=== PATIENT | female | born 1945 | race Caucasian/White ===

== ENCOUNTER 2017-08-29 15:30 | Inpatient (IN) | payer MEDICARE, OTHER ==
[2017-08-29] MEDS ORDERED: fentaNYL 100 MCG/2 ML SDV IVPUSH ONE (16:54)
--- NOTE | 2017-08-29 18:13 | EDM.PDOC ---
ED HPI GENERAL MEDICAL PROBLEM - General Chief Complaint: Back Pain or Injury Stated Complaint: BACK PAIN Time Seen by Provider: 08/29/17 16:10 Source of Information: Reports: Patient History Limitations: Reports: No Limitations - History of Present Illness INITIAL COMMENTS - FREE TEXT/NARRATIVE: Jo-Ann is a 72 yo female brought into the ER via EMS with complaints of low back pain radiating to bilateral hips. She states the pain initially started about 1 1/2 weeks ago when she was lifting something and heard a pop. She states she did go see a chiropractor twice and feels this made it worse. Has had some difficulties with being incontinent as well. However, still able to control bowel movements. She states the pain became worse today and is unable to get up. Over the last week she hasn't taken any of her medications either as she didn't want to get up. Duration: Getting Worse Location: Reports: Back Improves with: Reports: Immobilization Worsens with: Reports: Movement Associated Symptoms: Reports: No Other Symptoms Bilateral Lower Hip Pain Score (Numeric/FACES): 5 - Related Data Allergies Allergy/AdvReac Type Severity Reaction Status Date / Time ciprofloxacin [From Cipro] Allergy Cannot Verified 08/29/17 15:38 Remember ciprofloxacin HCl Allergy Cannot Verified 08/29/17 15:38 [From Cipro] Remember morphine Allergy Cannot Verified 08/29/17 15:38 Remember simvastatin [From Zocor] Allergy Cannot Verified 08/29/17 15:38 Remember Home Meds: Home Meds Acetaminophen/HYDROcodone [Lortab 500-5 MG] 1 tab PO Q8H PRN 03/03/14 [History] Ascorbate Calcium/Bioflavonoid [Ofelia-C 1,000 mg Tablet] 1 each PO DAILY [History] Aspirin [Ecotrin] 325 mg PO DAILY 03/03/14 [History] Ca Cmb No.1/Vit D3/B-6/FA/B12 [Vitamin D3 1,000 Unit] 1 each PO DAILY 03/03/14 [ History] Calc/D3/Mag/Zn/Freelance Designer/[place]/Anthon [Calcium 600 MG Plus Vit D] 1 each PO DAILY [History] Cyanocobalamin (Vitamin B12) [Vitamin B12] 1,000 mcg IJ ASDIRECTED 03/03/14 [ History] Esomeprazole [NexIUM] 40 mg PO DAILY 03/03/14 [History] Gabapentin [Gabapentin] 100 mg PO DAILY 03/03/14 [History] Meclizine [Antivert] 25 mg PO ASDIRECTED PRN 03/03/14 [History] Metoprolol Succinate [Toprol XL 50mg] 50 mg PO DAILY 03/03/14 [History] Naproxen Sodium [Aleve] 440 mg PO BID PRN 03/03/14 [History] Rosuvastatin Calcium [Crestor] 5 mg PO DAILY 03/03/14 [History] Sertraline [Zoloft] 50 mg PO BEDTIME 03/03/14 [History] Past Medical History HEENT 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: Cataract, Hard of Hearing, Impaired Vision Cardiovascular 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: High Cholesterol, Hypertension Gastrointestinal 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: GERD Genitourinary 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: Urinary Incontinence [employer]OR 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: Musculoskeletal 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: Arthritis, Back Pain, Chronic Neurological 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: Headaches, Chronic Psychiatric 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: Depression - Past Surgical History HEENT Surgical 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: Cataract Surgery Cardiovascular Surgical 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: Valve Replacement GI Surgical 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: Colonoscopy, EGD Social & Family History - Family History Family Medical History: Noncontributory - Tobacco Use Smoking Status *Q: Former Smoker Used Tobacco, but Quit: Yes Month Tobacco Last Used: 1959 - Caffeine Use Caffeine Use: Reports: Coffee, Soda - Recreational Drug Use Recreational Drug Use: No ED ROS GENERAL - Review of Systems Review Of Systems: See Below Constitutional: Reports: No Symptoms HEENT: Reports: No Symptoms Respiratory: Reports: No Symptoms Cardiovascular: Reports: No Symptoms GI/Abdominal: Denies: Abdominal Pain, Constipation, Diarrhea : Reports: Incontinence. Denies: Frequency, Urgency, Urinary Retention Musculoskeletal: Reports: Back Pain, Muscle Pain (across entire low back) Neurological: Reports: Difficulty Walking, Weakness ED EXAM,LOWER BACK PAIN/INJURY - Physical Exam Exam: See Below Exam Limited By: No Limitations General Appearance: Alert, Mild Distress Ears: Normal External Exam, Normal TMs, Hearing Loss Nose: Normal Inspection, Normal Mucosa, No Blood Throat/Mouth: Normal Inspection, Normal Lips, Normal Teeth, Normal Gums, Normal Oropharynx, Normal Voice, No Airway Compromise Head: Atraumatic, Normocephalic Neck: Normal Inspection, Supple Respiratory/Chest: No Respiratory Distress, Lungs Clear, Normal Breath Sounds Cardiovascular: Regular Rate, Rhythm, No Edema, No Murmur GI/Abdominal: Normal Bowel Sounds, Soft, Non-Tender, No Abnormal Bruit, No Mass Back Exam: Paraspinal Tenderness (L2-L4), Vertebral Tenderness (L2-L4) Extremities: Normal Inspection, Normal Range of Motion, Normal Capillary Refill Neurological: Alert, Normal Mood/Affect, No Motor/Sensory Deficits Psychiatric: Normal Affect, Normal Mood Skin Exam: Warm, Dry, Intact, Normal Color, No Rash, Cool Course - Vital Signs Last Recorded V/S: Last Vital Signs Temp 98.9 F 08/29/17 15:58 Pulse 62 08/29/17 15:58 Resp 16 08/29/17 15:58 BP 148/74 H 08/29/17 15:58 Pulse Ox 94 L 08/29/17 15:58 - Orders/Labs/Meds Orders: Active Orders 24 hr Category Date Time Status Lumbar Spine wo Cont [CT] Stat Exams 08/29/17 15:50 Taken Meds: Medications Discontinued Medications Generic Name Dose Route Start Last Admin Trade Name Kiko PRN Reason Stop Dose Admin Fentanyl 50 mcg 08/29/17 16:54 08/29/17 17:03 Sublimaze IVPUSH 08/29/17 16:55 50 mcg ONETIME ONE Administration Departure - Departure Time of Disposition: 18:00 Disposition: Admitted As Inpatient 65 Clinical Impression: Compression fracture of L3 lumbar vertebra - Discharge Information - Problem List & Annotations (1) Compression fracture of L3 lumbar vertebra SNOMED Code(s): 605978155 Code(s): S32.030A - WEDGE COMPRESSION FRACTURE OF THIRD LUMBAR VERTEBRA, INIT Status: Acute Current Visit: Yes Qualifiers: Encounter type: initial encounter Fracture type: closed Qualified Code(s) : S32.030A - Wedge compression fracture of third lumbar vertebra, initial encounter for closed fracture - Problem List Review Problem List Initiated/Reviewed/Updated: Yes - My Orders Last 24 Hours: My Active Orders 08/29/17 15:50 Lumbar Spine wo Cont [CT] Stat - Assessment/Plan Admission H&P: Please use this note as an admission H&P Last 24 Hours: My Active Orders 08/29/17 15:50 Lumbar Spine wo Cont [CT] Stat Plan: CT scan showed L3 compression fracture. Will admit to Dr. Ellsworth's services under acute care for pain control. Dr. Ellsworth alerted of patient admission. Melina verbalized understanding.
[2017-08-29] MEDS ORDERED: [UNRECOGNIZED DRUG - REMARK] PO PRN (18:33)
[2017-08-29] MEDS ORDERED: Ondansetron 4 MG/2 ML SDV IV PRN (18:33)
[2017-08-29] MEDS ORDERED: Sodium Chloride 0.9% 10 ML Syringe FLUSH PRN (18:33)
[2017-08-29] MEDS: Acetaminophen/HYDROcodone 325-5 MG Tab PO PRN (18:58)
[2017-08-29] MEDS ORDERED: Naproxen 500 MG Tab PO PRN (19:21)
[2017-08-29] MEDS: Sertraline 25 MG Tab PO SCH (19:22)
[2017-08-29] MEDS: fentaNYL 100 MCG/2 ML SDV IVPUSH PRN (22:43)
[2017-08-30] MEDS: Acetaminophen/HYDROcodone 325-5 MG Tab PO PRN ×5 (03:49→23:54)
[2017-08-30] MEDS ORDERED: Clopidogrel 75 MG Tab PO SCH (08:00)
[2017-08-30] MEDS: Gabapentin 100 MG Cap PO SCH (08:01)
[2017-08-30] MEDS: Lisinopril 5 MG Tab PO SCH (08:01)
[2017-08-30] MEDS: Metoprolol Succinate 25 MG Tab.ER PO SCH (08:02)
[2017-08-30] MEDS: Pantoprazole 40 MG Tab.CR PO SCH (08:02)
[2017-08-30] MEDS: amLODIPine 2.5 MG Tab PO SCH (08:21)
--- NOTE | 2017-08-30 08:49 | PCM.PN ---
- General Info Date of Service: 08/30/17 Admission Dx/Problem (Free Text): L3 Compression Fracture Functional Status: Reports: Pain Controlled, Tolerating Diet. Denies: Ambulating - Review of Systems General: Reports: Weakness. Denies: Fever, Fatigue HEENT: Reports: No Symptoms Pulmonary: Denies: Shortness of Breath, Cough Cardiovascular: Denies: Chest Pain, Edema, Lightheadedness Gastrointestinal: Denies: Abdominal Pain, Nausea, Vomiting Musculoskeletal: Reports: Back Pain Skin: Reports: No Symptoms Neurological: Reports: Other (leg pain) - Patient Data Vitals - Most Recent: Last Vital Signs Temp 98.2 F 08/30/17 08:00 Pulse 58 L 08/30/17 08:02 Resp 18 08/30/17 08:00 BP 144/52 H 08/30/17 08:02 Pulse Ox 95 08/30/17 08:00 Weight - Most Recent: 154 lb 8.705 oz Lab Results Last 24 Hours: Laboratory Results - last 24 hr 08/29/17 08/30/17 08/30/17 Range/Units 19:00 06:50 06:50 WBC 6.0 (5.0-10.0) 10^3/uL RBC 4.05 (4.00-5.50) 10^6/uL Hgb 13.1 (12.0-16.0) g/dL Hct 40.3 (37.0-47.0) % MCV 99.5 H (82.0-94.0) fL MCH 32.3 H (27.0-32.0) pg MCHC 32.5 L (33.0-38.0) g/dL RDW Coeff of Lakhwinder 12.6 (11.0-15.0) % Plt Count 105 L (150-400) 10^3/uL Neut % (Auto) 52.0 (35-85) % Lymph % (Auto) 33.7 (10-55) % Bryan % (Auto) 11.0 (0-16) % Eos % (Auto) 3.0 (0-5) % Baso % (Auto) 0.3 (0-3) % Neut # (Auto) 3.12 (1.80-7.00) 10^3/uL Lymph # (Auto) 2.02 (1.00-4.80) 10^3/uL Bryan # (Auto) 0.66 (0.00-0.80) 10^3/uL Eos # (Auto) 0.18 (0.00-0.45) 10^3/uL Baso # (Auto) 0.02 10^3/uL Sodium 140 (136-145) mEq/L Potassium 4.2 (3.5-5.0) mEq/L Chloride 108 H (98-106) mEq/L Carbon Dioxide 27 (21-32) mmol/L BUN 29 H (7-18) mg/dL Creatinine 1.2 H (0.6-1.0) mg/dL Est Cr Clr Drug Dosing 34.54 mL/min Estimated GFR (MDRD) 44 L (>=60) mL/min Glucose 91 (75-99) mg/dL Calcium 8.9 (8.4-10.1) mg/dL Urine Color Yellow (YELLOW) Urine Appearance Clear (CLEAR) Urine pH 5.0 (4.5-8.0) Ur Specific Guild >= 1.030 H (1.003-1.020) Urine Protein Negative (NEGATIVE) mg/dL Urine Glucose (UA) Negative (NEGATIVE) mg/dL Urine Ketones 15 H (NEGATIVE) mg/dL Urine Occult Blood Negative (NEGATIVE) Urine Nitrite Negative (NEGATIVE) Urine Bilirubin Negative (NEGATIVE) Urine Urobilinogen 0.2 (0.2-1.0) EU/dL Ur Leukocyte Esterase Negative (NEGATIVE) Urine RBC Not seen (0-5) /HPF Urine WBC Not seen (0-5) /HPF Ur Squamous Epith Cells Moderate H (NOT SEEN) /HPF Urine Bacteria Occasional H (NOT SEEN) /HPF Urine Mucus Few H (NOT SEEN) /HPF Med Orders - Current: Current Medications Hydrocodone Bitart/Acetaminophen ([place] 325-5 Mg) 1 tab PO Q4H PRN PRN Reason: Pain (moderate 4-6) Last Admin: 08/30/17 08:03 Dose: 1 tab Amlodipine Besylate (Norvasc) 2.5 mg PO DAILY [facility] Last Admin: 08/30/17 08:21 Dose: 2.5 mg Clopidogrel Bisulfate (Plavix) 75 mg PO DAILY [facility] Last Admin: 08/30/17 08:01 Dose: 75 mg Enoxaparin Sodium (Lovenox) 30 mg SUBCUT DAILY [facility] Fentanyl (Sublimaze) 25 - 50 mcg IVPUSH Q2H PRN PRN Reason: Pain Last Admin: 08/29/17 22:43 Dose: 25 mcg Gabapentin (Neurontin) 100 mg PO DAILY [facility] Last Admin: 08/30/17 08:01 Dose: 100 mg Lisinopril (Prinivil) 5 mg PO DAILY [facility] Last Admin: 08/30/17 08:01 Dose: 5 mg Metoprolol Succinate (Toprol Xl) 50 mg PO DAILY [facility] Last Admin: 08/30/17 08:02 Dose: 50 mg Naproxen (Naprosyn) 250 mg PO Q12H PRN PRN Reason: Pain Ondansetron HCl (Zofran) 4 mg IV Q4H PRN PRN Reason: Nausea/Vomiting Pantoprazole Sodium (Protonix) 40 mg PO DAILY [facility] Last Admin: 08/30/17 08:02 Dose: 40 mg Sertraline HCl (Zoloft) 50 mg PO BEDTIME [facility] Last Admin: 08/29/17 19:22 Dose: 50 mg Sodium Chloride (Saline Flush) 10 ml FLUSH ASDIRECTED PRN PRN Reason: Keep Vein Open Discontinued Medications Fentanyl (Sublimaze) 50 mcg IVPUSH ONETIME ONE Stop: 08/29/17 16:55 Last Admin: 08/29/17 17:03 Dose: 50 mcg Non-FormAleve (440 Mg) 440 mg PO BID PRN PRN Reason: Pain - Exam General: Alert, Oriented HEENT: Mucous Membr. Moist/[place] Neck: Supple Lungs: Clear to Auscultation, Normal Respiratory Effort Cardiovascular: Regular Rate, Regular Rhythm GI/Abdominal Exam: Normal Bowel Sounds, Soft, Non-Tender Extremities: Normal Inspection, No Pedal Edema Skin: Warm, Dry Neurological: No New Focal Deficit Psy/Mental Status: Alert, Normal Affect, Normal Mood - Problem List & Annotations (1) Compression fracture of L3 lumbar vertebra SNOMED Code(s): 479847640 Code(s): S32.030A - WEDGE COMPRESSION FRACTURE OF THIRD LUMBAR VERTEBRA, INIT Status: Acute Current Visit: Yes Qualifiers: Encounter type: initial encounter Fracture type: closed Qualified Code(s) : S32.030A - Wedge compression fracture of third lumbar vertebra, initial encounter for closed fracture - Problem List Review Problem List Initiated/Reviewed/Updated: Yes - My Orders Last 24 Hours: My Active Orders 08/30/17 08:15 Lumbar Spine Comp wo Cont [MR] Routine - Assessment Assessment:: L3 Compression Fracture - Plan Plan:: Patient continues to have pain, states very difficult to move because of it but does get relief with pain meds. She has not attempted to get out of bed yet, been using the bed faith. Continues to have pain in the low back that radiates down her legs. Labs all stable this am. Will obtain a MRI today and then consult with interventional radiology about vertebraplasty due to acute compression fracture. Continue pain meds. PT as directed.
[2017-08-30] MEDS: Enoxaparin 30 MG/0.3 ML Syringe SUBCUT SCH (10:18)
[2017-08-30] MEDS: fentaNYL 100 MCG/2 ML SDV IVPUSH PRN (10:21)
[2017-08-30] MEDS: Sertraline 25 MG Tab PO SCH (19:21)
[2017-08-31] MEDS: Acetaminophen/HYDROcodone 325-5 MG Tab PO PRN ×3 (05:15→20:12)
[2017-08-31] MEDS: Enoxaparin 30 MG/0.3 ML Syringe SUBCUT SCH (07:35)
[2017-08-31] MEDS: Lisinopril 5 MG Tab PO SCH (07:36)
[2017-08-31] MEDS: Pantoprazole 40 MG Tab.CR PO SCH (07:36)
[2017-08-31] MEDS: amLODIPine 2.5 MG Tab PO SCH (07:36)
[2017-08-31] MEDS: Metoprolol Succinate 25 MG Tab.ER PO SCH (07:36)
[2017-08-31] MEDS: Gabapentin 100 MG Cap PO SCH (07:37)
[2017-08-31] MEDS: fentaNYL 100 MCG/2 ML SDV IVPUSH PRN (09:09)
--- NOTE | 2017-08-31 15:04 | PCM.PN ---
- General Info Date of Service: 08/31/17 Admission Dx/Problem (Free Text): L3 Compression Fracture Functional Status: Reports: Pain Controlled (doing well with pain meds while at rest; has had minimal activity yet at this point, only stool at the bedside with PT), Tolerating Diet. Denies: Ambulating - Review of Systems General: Reports: Weakness. Denies: Fever, Fatigue HEENT: Reports: No Symptoms Pulmonary: Denies: Shortness of Breath, Cough, Sputum Cardiovascular: Denies: Chest Pain, Edema, Lightheadedness Gastrointestinal: Denies: Abdominal Pain, Nausea, Vomiting Genitourinary: Reports: No Symptoms Musculoskeletal: Reports: Back Pain, Leg Pain Skin: Reports: No Symptoms Neurological: Reports: Weakness - Patient Data Vitals - Most Recent: Last Vital Signs Temp 98.1 F 08/31/17 12:00 Pulse 57 L 08/31/17 12:00 Resp 16 08/31/17 12:00 BP 142/52 H 08/31/17 12:00 Pulse Ox 94 L 08/31/17 12:00 Weight - Most Recent: 154 lb 8.705 oz I&O - Last 24 Hours: Intake & Output 08/31/17 08/31/17 08/31/17 06:59 14:59 22:59 Intake Total 400 Balance 400 Med Orders - Current: Current Medications Hydrocodone Bitart/Acetaminophen ([place] 325-5 Mg) 1 tab PO Q4H PRN PRN Reason: Pain (moderate 4-6) Last Admin: 08/31/17 13:22 Dose: 1 tab Amlodipine Besylate (Norvasc) 2.5 mg PO DAILY [facility] Last Admin: 08/31/17 07:36 Dose: 2.5 mg Clopidogrel Bisulfate (Plavix) 75 mg PO DAILY [facility] Last Admin: 08/30/17 08:01 Dose: 75 mg Enoxaparin Sodium (Lovenox) 30 mg SUBCUT DAILY@0800 [facility] Last Admin: 08/31/17 07:35 Dose: 30 mg Fentanyl (Sublimaze) 50 mcg IVPUSH BID [facility] Gabapentin (Neurontin) 100 mg PO DAILY [facility] Last Admin: 08/31/17 07:37 Dose: 100 mg Lisinopril (Prinivil) 5 mg PO DAILY [facility] Last Admin: 08/31/17 07:36 Dose: 5 mg Metoprolol Succinate (Toprol Xl) 50 mg PO DAILY [facility] Last Admin: 08/31/17 07:36 Dose: 50 mg Naproxen (Naprosyn) 250 mg PO Q12H PRN PRN Reason: Pain Ondansetron HCl (Zofran) 4 mg IV Q4H PRN PRN Reason: Nausea/Vomiting Pantoprazole Sodium (Protonix) 40 mg PO DAILY [facility] Last Admin: 08/31/17 07:36 Dose: 40 mg Sertraline HCl (Zoloft) 50 mg PO BEDTIME [facility] Last Admin: 08/30/17 19:21 Dose: 50 mg Sodium Chloride (Saline Flush) 10 ml FLUSH ASDIRECTED PRN PRN Reason: Keep Vein Open Discontinued Medications Fentanyl (Sublimaze) 50 mcg IVPUSH ONETIME ONE Stop: 08/29/17 16:55 Last Admin: 08/29/17 17:03 Dose: 50 mcg Fentanyl (Sublimaze) 25 - 50 mcg IVPUSH Q2H PRN PRN Reason: Pain Last Admin: 08/31/17 09:09 Dose: 25 mcg Non-FormAleve (440 Mg) 440 mg PO BID PRN PRN Reason: Pain - Exam General: Alert, Oriented HEENT: Mucous Membr. Moist/[place] Neck: Supple Lungs: Clear to Auscultation, Normal Respiratory Effort Cardiovascular: Regular Rate, Regular Rhythm GI/Abdominal Exam: Normal Bowel Sounds, Soft, Non-Tender Extremities: Normal Inspection, No Pedal Edema - Problem List & Annotations (1) Compression fracture of L3 lumbar vertebra SNOMED Code(s): 891906030 Code(s): S32.030A - WEDGE COMPRESSION FRACTURE OF THIRD LUMBAR VERTEBRA, INIT Status: Acute Current Visit: Yes Qualifiers: Encounter type: initial encounter Fracture type: closed Qualified Code(s) : S32.030A - Wedge compression fracture of third lumbar vertebra, initial encounter for closed fracture - Problem List Review Problem List Initiated/Reviewed/Updated: Yes - My Orders Last 24 Hours: My Active Orders 08/31/17 20:00 fentaNYL [Sublimaze] 50 mcg IVPUSH BID - Assessment Assessment:: L3 Compression Fracture - Plan Plan:: Patient continues to have pain, states very difficult to move because of it but does get relief with pain meds. She has not attempted to get out of bed yet, been using the bed faith. Continues to have pain in the low back that radiates down her legs. Labs all stable this am. Will obtain a MRI today and then consult with interventional radiology about vertebraplasty due to acute compression fracture. Continue pain meds. PT as directed. 08-31-2017 Patient states pain controlled with pain medications while at rest but has increased pain with movement. Has thus far refused to get up to the bathroom and has been either requesting the bed faith or has been incontinent. She did stand at the bedside yesterday with PT but states caused severe pain. She did have the MRI yesterday that confirmed the L3 compression fracture but no other changes noted. Dr. Ellsworth will contact Dr. Menard with interventional radiology about treatment for this. Are holding her Plavix at this point in anticipation of this. Nurses report she has not been taking all her meds, nor the Plavix, as directed at home prior to hospitalization. Will continue with PT, encourage increased activity with pain medications to cover.
[2017-08-31] MEDS: Sertraline 25 MG Tab PO SCH (19:42)
[2017-08-31] MEDS: Polyethylene Glycol 3350 Powder 17 GM Packet PO SCH (19:42)
[2017-08-31] MEDS: fentaNYL 100 MCG/2 ML SDV IVPUSH SCH (19:45)
[2017-09-01] MEDS: Acetaminophen/HYDROcodone 325-5 MG Tab PO PRN ×5 (00:28→23:37)
[2017-09-01] MEDS: fentaNYL 100 MCG/2 ML SDV IVPUSH SCH ×2 (07:40→19:56)
[2017-09-01] MEDS: Enoxaparin 30 MG/0.3 ML Syringe SUBCUT SCH (07:40)
[2017-09-01] MEDS: Pantoprazole 40 MG Tab.CR PO SCH (07:41)
[2017-09-01] MEDS: Lisinopril 5 MG Tab PO SCH (07:41)
[2017-09-01] MEDS: Metoprolol Succinate 25 MG Tab.ER PO SCH (07:41)
[2017-09-01] MEDS: Polyethylene Glycol 3350 Powder 17 GM Packet PO SCH (07:41)
[2017-09-01] MEDS: amLODIPine 2.5 MG Tab PO SCH (07:43)
[2017-09-01] MEDS: Gabapentin 100 MG Cap PO SCH (07:43)
--- NOTE | 2017-09-01 17:15 | PCM.PN ---
- General Info Date of Service: 09/01/17 Admission Dx/Problem (Free Text): L3 Compression Fracture Functional Status: Reports: Pain Controlled (with pain meds), Tolerating Diet, Ambulating - Review of Systems General: Reports: Weakness. Denies: Fever HEENT: Reports: No Symptoms Pulmonary: Denies: Shortness of Breath, Cough Cardiovascular: Denies: Chest Pain, Edema, Lightheadedness Gastrointestinal: Denies: Abdominal Pain, Nausea, Vomiting Genitourinary: Reports: No Symptoms Musculoskeletal: Reports: Back Pain Skin: Reports: No Symptoms Neurological: Reports: No Symptoms - Patient Data Vitals - Most Recent: Last Vital Signs Temp 98.1 F 09/01/17 11:56 Pulse 75 09/01/17 11:56 Resp 20 09/01/17 11:56 BP 119/48 L 09/01/17 11:56 Pulse Ox 97 09/01/17 11:56 Weight - Most Recent: 154 lb 8.705 oz Med Orders - Current: Current Medications Hydrocodone Bitart/Acetaminophen ([place] 325-5 Mg) 1 - 2 tab PO Q4H PRN PRN Reason: Pain (moderate 4-6) Last Admin: 09/01/17 12:52 Dose: 2 tab Amlodipine Besylate (Norvasc) 2.5 mg PO DAILY [facility] Last Admin: 09/01/17 07:43 Dose: 2.5 mg Clopidogrel Bisulfate (Plavix) 75 mg PO DAILY [facility] Last Admin: 08/30/17 08:01 Dose: 75 mg Enoxaparin Sodium (Lovenox) 30 mg SUBCUT DAILY@0800 [facility] Last Admin: 09/01/17 07:40 Dose: 30 mg Fentanyl (Sublimaze) 50 mcg IVPUSH BID [facility] Last Admin: 09/01/17 07:40 Dose: 50 mcg Gabapentin (Neurontin) 100 mg PO DAILY [facility] Last Admin: 09/01/17 07:43 Dose: 100 mg Lisinopril (Prinivil) 5 mg PO DAILY [facility] Last Admin: 09/01/17 07:41 Dose: 5 mg Metoprolol Succinate (Toprol Xl) 50 mg PO DAILY [facility] Last Admin: 09/01/17 07:41 Dose: 50 mg Naproxen (Naprosyn) 250 mg PO Q12H PRN PRN Reason: Pain Ondansetron HCl (Zofran) 4 mg IV Q4H PRN PRN Reason: Nausea/Vomiting Pantoprazole Sodium (Protonix) 40 mg PO DAILY [facility] Last Admin: 09/01/17 07:41 Dose: 40 mg Polyethylene Glycol (Miralax) 17 gm PO DAILY [facility] Last Admin: 09/01/17 07:41 Dose: 17 gm Sertraline HCl (Zoloft) 50 mg PO BEDTIME [facility] Last Admin: 08/31/17 19:42 Dose: 50 mg Sodium Chloride (Saline Flush) 10 ml FLUSH ASDIRECTED PRN PRN Reason: Keep Vein Open Discontinued Medications Hydrocodone Bitart/Acetaminophen ([place] 325-5 Mg) 1 tab PO Q4H PRN PRN Reason: Pain (moderate 4-6) Last Admin: 08/31/17 13:22 Dose: 1 tab Fentanyl (Sublimaze) 50 mcg IVPUSH ONETIME ONE Stop: 08/29/17 16:55 Last Admin: 08/29/17 17:03 Dose: 50 mcg Fentanyl (Sublimaze) 25 - 50 mcg IVPUSH Q2H PRN PRN Reason: Pain Last Admin: 08/31/17 09:09 Dose: 25 mcg Non-FormAleve (440 Mg) 440 mg PO BID PRN PRN Reason: Pain - Exam General: Alert, Oriented HEENT: Mucous Membr. Moist/[place] Neck: Supple Lungs: Clear to Auscultation, Normal Respiratory Effort Cardiovascular: Regular Rate, Regular Rhythm GI/Abdominal Exam: Normal Bowel Sounds, Soft, Non-Tender Back Exam: Vertebral Tenderness Extremities: Normal Inspection, No Pedal Edema Skin: Warm, Dry Neurological: No New Focal Deficit Psy/Mental Status: Alert, Normal Affect, Normal Mood - Problem List & Annotations (1) Compression fracture of L3 lumbar vertebra SNOMED Code(s): 101290515 Code(s): S32.030A - WEDGE COMPRESSION FRACTURE OF THIRD LUMBAR VERTEBRA, INIT Status: Acute Current Visit: Yes Qualifiers: Encounter type: initial encounter Fracture type: closed Qualified Code(s) : S32.030A - Wedge compression fracture of third lumbar vertebra, initial encounter for closed fracture - Problem List Review Problem List Initiated/Reviewed/Updated: Yes - My Orders Last 24 Hours: My Active Orders 08/31/17 20:00 fentaNYL [Sublimaze] 50 mcg IVPUSH BID - Assessment Assessment:: L3 Compression Fracture - Plan Plan:: Patient continues to have pain, states very difficult to move because of it but does get relief with pain meds. She has not attempted to get out of bed yet, been using the bed faith. Continues to have pain in the low back that radiates down her legs. Labs all stable this am. Will obtain a MRI today and then consult with interventional radiology about vertebroplasty due to acute compression fracture. Continue pain meds. PT as directed. 08-31-2017 Patient states pain controlled with pain medications while at rest but has increased pain with movement. Has thus far refused to get up to the bathroom and has been either requesting the bed faith or has been incontinent. She did stand at the bedside yesterday with PT but states caused severe pain. She did have the MRI yesterday that confirmed the L3 compression fracture but no other changes noted. Dr. Ellsworth will contact Dr. Menard with interventional radiology about treatment for this. Are holding her Plavix at this point in anticipation of this. Nurses report she has not been taking all her meds, nor the Plavix, as directed at home prior to hospitalization. Will continue with PT, encourage increased activity with pain medications to cover. 09-01-2017 Patient groggy this am as a result of her Fentanyl but admits it does help her pain. Has been up with PT, ambulated short distances yesterday. No new acute changes. Continue to hold Plavix anticipating vertebroplasty. Continue with PT and pain meds. Possible swing bed tomorrow until procedure can be arranged once off Plavix for 7 days. Son here and aware and was advised of medication compliance at home as well. Will discuss with and plan for assistance at home and with medication planning upon discharge.
[2017-09-01] MEDS: Sertraline 25 MG Tab PO SCH (19:57)
[2017-09-02] MEDS: Acetaminophen/HYDROcodone 325-5 MG Tab PO PRN (04:26)
[2017-09-02] MEDS: Polyethylene Glycol 3350 Powder 17 GM Packet PO SCH (07:46)
[2017-09-02] MEDS: Metoprolol Succinate 25 MG Tab.ER PO SCH (07:48)
[2017-09-02] MEDS: Enoxaparin 30 MG/0.3 ML Syringe SUBCUT SCH (07:48)
[2017-09-02] MEDS: Pantoprazole 40 MG Tab.CR PO SCH (07:49)
[2017-09-02] MEDS: Lisinopril 5 MG Tab PO SCH (07:49)
[2017-09-02] MEDS: Gabapentin 100 MG Cap PO SCH (07:49)
[2017-09-02] MEDS: fentaNYL 100 MCG/2 ML SDV IVPUSH SCH (07:49)
[2017-09-02] MEDS: amLODIPine 2.5 MG Tab PO SCH (07:49)
[2017-09-02 07:50] VITALS: BP 115/54
--- NOTE | 2017-09-04 19:34 | PCM.DCSUM1 ---
Discharge Summary - Hospital Course Free Text/Narrative:: Patient admitted from ER with L3 compression fracture. Patient had been experiencing low back pain for about 10 days. She had noted a pop after lifting something and the pain has progressively gotten worse. She experienced pain that radiated down her legs and was having a difficult time moving at all. On admit, was found to have not been taking all her meds appropriately, missing many doses per expected pill counts. Admitted for pain control and PT. - Discharge Data Discharge Date: 09/02/17 Discharge Disposition: DC/Tfer W/I Hosp To Swing Condition: Fair - Discharge Diagnosis/Problem(s) (1) Compression fracture of L3 lumbar vertebra SNOMED Code(s): 750591861 ICD Code: S32.030A - WEDGE COMPRESSION FRACTURE OF THIRD LUMBAR VERTEBRA, INIT Status: Acute Qualifiers: Encounter type: initial encounter Fracture type: closed Qualified Code(s) : S32.030A - Wedge compression fracture of third lumbar vertebra, initial encounter for closed fracture - Patient Summary/Data Complications: none Hospital Course: Patient has had slow improvement of overall movement since admission for a L3 compression fracture. She has been up and out of the bed and ambulating slowly with a walker and PT. Pain has been controlled with Fentanyl and [place]. She did have a MRI due to radiculopathy. Did note the L3 compression fracture but no other acute changes. Dr. Ellsworth did consult with Dr. Cabrera. Plavix has been hold. Plan for vertebroplasty on Tuesday. Transferred to swing bed for ongoing PT and pain control. - Patient Instructions Diet: Usual Diet as Tolerated Activity: As Tolerated - Discharge Plan Home Medications: Home Meds Ascorbate Calcium/Bioflavonoid [Ofelia-C 1,000 mg Tablet] 1 each PO DAILY [History] Ca Cmb No.1/Vit D3/B-6/FA/B12 [Vitamin D3 1,000 Unit] 1 each PO DAILY 03/03/14 [ History] Calc/D3/Mag/Zn/Lean Manufacturing Leader/[place] [Calcium 600 MG Plus Vit D] 1 each PO DAILY [History] Cyanocobalamin (Vitamin B12) [Vitamin B12] 1,000 mcg IJ ASDIRECTED 03/03/14 [ History] Esomeprazole [NexIUM] 40 mg PO DAILY 03/03/14 [History] Gabapentin [Gabapentin] 100 mg PO DAILY 03/03/14 [History] Meclizine [Antivert] 25 mg PO ASDIRECTED PRN 03/03/14 [History] Metoprolol Succinate [Toprol XL 50mg] 50 mg PO DAILY 03/03/14 [History] Naproxen Sodium [Aleve] 440 mg PO BID PRN 03/03/14 [History] Rosuvastatin Calcium [Crestor] 5 mg PO DAILY 03/03/14 [History] Sertraline [Zoloft] 50 mg PO BEDTIME 03/03/14 [History] Acetaminophen with Codeine [Tylenol with Codeine #3 Tablet] 1 - 2 tab PO Q8HR PRN 08/29/17 [History] Clopidogrel Bisulfate [Clopidogrel] 75 mg PO DAILY 08/29/17 [History] Lisinopril 5 mg PO DAILY 08/29/17 [History] amLODIPine Besylate [Norvasc] 2.5 mg PO DAILY 08/29/17 [History] Patient Handouts: Spinal Compression Fracture Forms: ED Department Discharge Referrals: Usama Ellsworth MD [Primary Care Provider] - - Discharge Summary/Plan Comment DC Time >30 min.: No Discharge Summary/Plan Comment: Transfer to swing bed status for ongoing pain control with Fentanyl and [place] and PT. - General Info Date of Service: 09/02/17 Admission Dx/Problem (Free Text: L3 Compression Fracture Functional Status: Reports: Pain Controlled, Tolerating Diet, Ambulating - Review of Systems General: Reports: Weakness HEENT: Reports: No Symptoms Pulmonary: Denies: Shortness of Breath, Cough, Sputum Cardiovascular: Denies: Chest Pain, Edema, Lightheadedness Gastrointestinal: Denies: Abdominal Pain, Constipation, Nausea, Vomiting Genitourinary: Reports: No Symptoms Musculoskeletal: Reports: Back Pain, Leg Pain Skin: Reports: No Symptoms Neurological: Reports: No Symptoms Psychiatric: Reports: No Symptoms - Patient Data Vitals - Most Recent: Last Vital Signs Temp 98.9 F 09/02/17 08:00 Pulse 55 L 09/02/17 08:00 Resp 20 09/02/17 08:00 BP 115/54 L 09/02/17 08:00 Pulse Ox 92 L 09/02/17 08:00 Weight - Most Recent: 154 lb 8.705 oz Med Orders - Current: Current Medications Discontinued Medications Hydrocodone Bitart/Acetaminophen ([place] 325-5 Mg) 1 tab PO Q4H PRN PRN Reason: Pain (moderate 4-6) Last Admin: 08/31/17 13:22 Dose: 1 tab Hydrocodone Bitart/Acetaminophen ([place] 325-5 Mg) 1 - 2 tab PO Q4H PRN PRN Reason: Pain (moderate 4-6) Last Admin: 09/02/17 04:26 Dose: 2 tab Amlodipine Besylate (Norvasc) 2.5 mg PO DAILY [facility] Last Admin: 09/02/17 07:49 Dose: 2.5 mg Clopidogrel Bisulfate (Plavix) 75 mg PO DAILY [facility] Last Admin: 08/30/17 08:01 Dose: 75 mg Enoxaparin Sodium (Lovenox) 30 mg SUBCUT DAILY@0800 [facility] Last Admin: 09/02/17 07:48 Dose: 30 mg Fentanyl (Sublimaze) 50 mcg IVPUSH ONETIME ONE Stop: 08/29/17 16:55 Last Admin: 08/29/17 17:03 Dose: 50 mcg Fentanyl (Sublimaze) 25 - 50 mcg IVPUSH Q2H PRN PRN Reason: Pain Last Admin: 08/31/17 09:09 Dose: 25 mcg Fentanyl (Sublimaze) 50 mcg IVPUSH BID [facility] Last Admin: 09/02/17 07:49 Dose: 50 mcg Gabapentin (Neurontin) 100 mg PO DAILY [facility] Last Admin: 09/02/17 07:49 Dose: 100 mg Lisinopril (Prinivil) 5 mg PO DAILY [facility] Last Admin: 09/02/17 07:49 Dose: 5 mg Metoprolol Succinate (Toprol Xl) 50 mg PO DAILY [facility] Last Admin: 09/02/17 07:48 Dose: 50 mg Naproxen (Naprosyn) 250 mg PO Q12H PRN PRN Reason: Pain Non-FormAleve (440 Mg) 440 mg PO BID PRN PRN Reason: Pain Ondansetron HCl (Zofran) 4 mg IV Q4H PRN PRN Reason: Nausea/Vomiting Pantoprazole Sodium (Protonix) 40 mg PO DAILY [facility] Last Admin: 09/02/17 07:49 Dose: 40 mg Polyethylene Glycol (Miralax) 17 gm PO DAILY [facility] Last Admin: 09/02/17 07:46 Dose: 17 gm Sertraline HCl (Zoloft) 50 mg PO BEDTIME [facility] Last Admin: 09/01/17 19:57 Dose: 50 mg Sodium Chloride (Saline Flush) 10 ml FLUSH ASDIRECTED PRN PRN Reason: Keep Vein Open - Exam General: Reports: Alert, Oriented HEENT: Reports: Mucous Membr. Moist/[place] Neck: Reports: Supple Lungs: Reports: Clear to Auscultation, Normal Respiratory Effort Cardiovascular: Reports: Regular Rate, Regular Rhythm GI/Abdominal Exam: Normal Bowel Sounds, Soft, Non-Tender Extremities: Normal Inspection, No Pedal Edema Skin: Reports: Warm, Dry Neurological: Reports: No New Focal Deficit *Q Meaningful Use (DIS) - VTE *Q VTE Criteria *Q: - Stroke *Q Stroke Criteria *Q: - AMI *Q AMI Criteria *Q:
== END 2017-09-02 10:55 | disposition swing bed (61) | DRG 552 ==
LOC: CC.ED 15:30 → UNDOADMIN 18:04 → CC.MS 18:04
PROVIDERS: ADMIT Physician Assistant Medical; ATTEND Family Medicine
DX: S32.030A Wedge compression fracture of third lumbar vertebra, initial encounter for closed fracture (principal); X50.9XXA Other and unspecified overexertion or strenuous movements or postures, initial encounter; I10 Essential (primary) hypertension; E78.00 Pure hypercholesterolemia, unspecified; K21.9 Gastro-esophageal reflux disease without esophagitis; G89.29 Other chronic pain; M19.90 Unspecified osteoarthritis, unspecified site; F32.9 Major depressive disorder, single episode, unspecified; Z95.2 Presence of prosthetic heart valve; H91.90 Unspecified hearing loss, unspecified ear; H54.7 Unspecified visual loss; Z87.891 Personal history of nicotine dependence; Z88.1 Allergy status to other antibiotic agents; Z88.8 Allergy status to other drugs, medicaments and biological substances; Z79.82 Long term (current) use of aspirin; Z79.899 Other long term (current) drug therapy
CPT/HCPCS: 72131; 96374; 99284; J3010; 36415; 72148; 80048; 81001; 85025; 97110-GP; 97161-GP; 97530-GP; A9270-GY; J1650

== ENCOUNTER 2017-09-02 11:11 | Inpatient (IN) | payer MEDICARE, OTHER ==
[2017-09-02] MEDS ORDERED: Ondansetron 4 MG/2 ML SDV IV PRN (11:43)
[2017-09-02] MEDS ORDERED: Sodium Chloride 0.9% 10 ML Syringe FLUSH PRN ×2 (11:43)
[2017-09-02] MEDS: Acetaminophen/HYDROcodone 325-5 MG Tab PO PRN (15:08)
[2017-09-02] MEDS: Sertraline 25 MG Tab PO SCH (19:23)
[2017-09-02] MEDS: fentaNYL 100 MCG/2 ML SDV IVPUSH SCH (19:24)
[2017-09-02] MEDS ORDERED: fentaNYL 100 MCG/2 ML SDV IVPUSH SCH (20:00)
[2017-09-03] MEDS: Acetaminophen/HYDROcodone 325-5 MG Tab PO PRN ×3 (00:33→22:26)
[2017-09-03] MEDS: fentaNYL 100 MCG/2 ML SDV IVPUSH SCH ×2 (07:27→19:23)
[2017-09-03] MEDS: Polyethylene Glycol 3350 Powder 17 GM Packet PO SCH (07:29)
[2017-09-03] MEDS: amLODIPine 2.5 MG Tab PO SCH (07:30)
[2017-09-03] MEDS: Enoxaparin 30 MG/0.3 ML Syringe SUBCUT SCH (07:30)
[2017-09-03] MEDS: Metoprolol Succinate 25 MG Tab.ER PO SCH (07:30)
[2017-09-03] MEDS: Pantoprazole 40 MG Tab.CR PO SCH (07:30)
[2017-09-03] MEDS: Gabapentin 100 MG Cap PO SCH (07:30)
[2017-09-03] MEDS: Lisinopril 5 MG Tab PO SCH (07:31)
[2017-09-03] MEDS: Sertraline 25 MG Tab PO SCH (19:24)
[2017-09-04] MEDS: Enoxaparin 30 MG/0.3 ML Syringe SUBCUT SCH (07:42)
[2017-09-04] MEDS: Polyethylene Glycol 3350 Powder 17 GM Packet PO SCH (07:42)
[2017-09-04] MEDS: fentaNYL 100 MCG/2 ML SDV IVPUSH SCH ×2 (07:43→19:21)
[2017-09-04] MEDS: Pantoprazole 40 MG Tab.CR PO SCH (07:45)
[2017-09-04] MEDS: amLODIPine 2.5 MG Tab PO SCH (07:50)
[2017-09-04] MEDS: Gabapentin 100 MG Cap PO SCH (07:50)
[2017-09-04] MEDS: Metoprolol Succinate 25 MG Tab.ER PO SCH (07:50)
[2017-09-04] MEDS: Lisinopril 5 MG Tab PO SCH (07:50)
[2017-09-04] MEDS: Acetaminophen/HYDROcodone 325-5 MG Tab PO PRN ×2 (13:48→17:50)
[2017-09-04] MEDS: Sertraline 25 MG Tab PO SCH (19:20)
[2017-09-05] MEDS: Acetaminophen/HYDROcodone 325-5 MG Tab PO PRN ×2 (06:13→17:36)
[2017-09-05] MEDS: fentaNYL 100 MCG/2 ML SDV IVPUSH SCH ×2 (07:27→20:10)
[2017-09-05] MEDS: Pantoprazole 40 MG Tab.CR PO SCH (07:28)
[2017-09-05] MEDS: Lisinopril 5 MG Tab PO SCH (07:28)
[2017-09-05] MEDS: Metoprolol Succinate 25 MG Tab.ER PO SCH (07:29)
[2017-09-05] MEDS: Gabapentin 100 MG Cap PO SCH (07:29)
[2017-09-05] MEDS: Polyethylene Glycol 3350 Powder 17 GM Packet PO SCH (07:29)
[2017-09-05] MEDS: Enoxaparin 30 MG/0.3 ML Syringe SUBCUT SCH (07:29)
[2017-09-05] MEDS: amLODIPine 2.5 MG Tab PO SCH (07:29)
[2017-09-05] MEDS: Sertraline 25 MG Tab PO SCH (20:10)
[2017-09-06 07:02] VITALS: BP 125/58
[2017-09-06] MEDS: fentaNYL 100 MCG/2 ML SDV IVPUSH SCH (07:17)
[2017-09-06] MEDS: Pantoprazole 40 MG Tab.CR PO SCH (07:19)
[2017-09-06] MEDS: Metoprolol Succinate 25 MG Tab.ER PO SCH (07:19)
[2017-09-06] MEDS: Polyethylene Glycol 3350 Powder 17 GM Packet PO SCH (07:19)
[2017-09-06] MEDS: Gabapentin 100 MG Cap PO SCH (07:19)
[2017-09-06] MEDS: amLODIPine 2.5 MG Tab PO SCH (07:19)
[2017-09-06] MEDS: Lisinopril 5 MG Tab PO SCH (07:19)
--- NOTE | 2017-09-09 09:58 | PCM.DCSUM1 ---
Discharge Summary - Hospital Course Free Text/Narrative:: Patient was admitted from ER to acute inpatient after having ongoing low back pain and inability to ambulate or move her legs well. She had been lifting something about a week prior and felt a pop in her back. Pain progressively getting worse until called EMS. Had a CT scan done in the ER which did note an acute L3 compression fracture. Was admitted for PT and pain control. Transferred to swing bed for ongoing PT and pain control. Plavix held. Consult was done with interventional radiology for possible vertebroplasty. To be off Plavix for 7 days and then plan to proceed with procedure with Dr. Cabrera. - Discharge Data Discharge Date: 09/06/17 Discharge Disposition: DC/Tfer to Acute Hospital 02 Condition: Fair - Patient Summary/Data Complications: none Consults: Consultations 09/02/17 11:43 PT Evaluation and Treatment [CONS] Routine Hospital Course: Swing bed stay uneventful. Pain was controlled with IV fentanyl and hydrocodone. Did have to reduce the dose as became quite lethargic from the Fentanyl. Up and ambulating short distances with PT and staff but still having pain with this. Plavix held for 7 days. Consult arranged with Dr. Cabrera. Transfer to [place] for planned vertebroplasty. - Patient Instructions Diet: NPO Activity: As Tolerated - Discharge Plan Home Medications: Home Meds Ascorbate Calcium/Bioflavonoid [Ofelia-C 1,000 mg Tablet] 1 each PO DAILY [History] Ca Cmb No.1/Vit D3/B-6/FA/B12 [Vitamin D3 1,000 Unit] 1 each PO DAILY 03/03/14 [ History] Calc/D3/Mag/Zn/Special Needs [place] [Calcium 600 MG Plus Vit D] 1 each PO DAILY [History] Cyanocobalamin (Vitamin B12) [Vitamin B12] 1,000 mcg IJ ASDIRECTED 03/03/14 [ History] Esomeprazole [NexIUM] 40 mg PO DAILY 03/03/14 [History] Gabapentin 100 mg PO DAILY 03/03/14 [History] Meclizine [Antivert] 25 mg PO ASDIRECTED PRN 03/03/14 [History] Metoprolol Succinate [Toprol XL 50mg] 50 mg PO DAILY 03/03/14 [History] Rosuvastatin Calcium [Crestor] 5 mg PO DAILY 03/03/14 [History] Sertraline [Zoloft] 50 mg PO BEDTIME 03/03/14 [History] Acetaminophen with Codeine [Tylenol with Codeine #3 Tablet] 1 - 2 tab PO Q8HR PRN 08/29/17 [History] Lisinopril 5 mg PO DAILY 08/29/17 [History] amLODIPine Besylate [Norvasc] 2.5 mg PO DAILY 08/29/17 [History] Referrals: Giorgi Menard MD [Consulting Physician] - (Dr. Menard as scheduled on 2017) - Discharge Summary/Plan Comment DC Time >30 min.: No Discharge Summary/Plan Comment: Discharge with son. Transfer to see Dr. Cabrera in [place] for vertebroplasty. - General Info Date of Service: 09/06/17 Admission Dx/Problem (Free Text: L3 compression fracture Functional Status: Reports: Pain Controlled, Tolerating Diet, Ambulating - Review of Systems General: Reports: Weakness, Fatigue HEENT: Reports: No Symptoms Pulmonary: Denies: Shortness of Breath, Cough Cardiovascular: Denies: Chest Pain, Edema, Lightheadedness Gastrointestinal: Reports: No Symptoms Genitourinary: Reports: No Symptoms Musculoskeletal: Reports: Back Pain Skin: Reports: No Symptoms Neurological: Reports: No Symptoms - Patient Data Vitals - Most Recent: Last Vital Signs Temp 98.3 F 09/06/17 07:01 Pulse 72 09/06/17 07:19 Resp 20 09/06/17 07:01 BP 125/58 L 09/06/17 07:19 Pulse Ox 94 L 09/06/17 07:01 Weight - Most Recent: 157 lb 4.8 oz Med Orders - Current: Current Medications Discontinued Medications Hydrocodone Bitart/Acetaminophen ([place] 325-5 Mg) 1 - 2 tab PO Q4H PRN PRN Reason: Pain (moderate 4-6) Last Admin: 09/05/17 17:36 Dose: 1 tab Amlodipine Besylate (Norvasc) 2.5 mg PO DAILY [facility] Last Admin: 09/06/17 07:19 Dose: 2.5 mg Enoxaparin Sodium (Lovenox) 30 mg SUBCUT DAILY@0800 [facility] Stop: 09/05/17 10:00 Last Admin: 09/05/17 07:29 Dose: 30 mg Fentanyl (Sublimaze) 50 mcg IVPUSH BID [facility] Fentanyl (Sublimaze) 25 mcg IVPUSH BID [facility] Last Admin: 09/06/17 07:17 Dose: 25 mcg Gabapentin (Neurontin) 100 mg PO DAILY [facility] Last Admin: 09/06/17 07:19 Dose: 100 mg Lisinopril (Prinivil) 5 mg PO DAILY [facility] Last Admin: 09/06/17 07:19 Dose: 5 mg Metoprolol Succinate (Toprol Xl) 50 mg PO DAILY [facility] Last Admin: 09/06/17 07:19 Dose: 50 mg Ondansetron HCl (Zofran) 4 mg IV Q4H PRN PRN Reason: Nausea/Vomiting Pantoprazole Sodium (Protonix) 40 mg PO DAILY [facility] Last Admin: 09/06/17 07:19 Dose: 40 mg Polyethylene Glycol (Miralax) 17 gm PO DAILY [facility] Last Admin: 09/06/17 07:19 Dose: Not Given Sertraline HCl (Zoloft) 50 mg PO BEDTIME [facility] Last Admin: 09/05/17 20:10 Dose: 50 mg Sodium Chloride (Saline Flush) 10 ml FLUSH ASDIRECTED PRN PRN Reason: Keep Vein Open Sodium Chloride (Saline Flush) 10 ml FLUSH ASDIRECTED PRN PRN Reason: Keep Vein Open - Exam General: Reports: Alert, Oriented HEENT: Reports: Mucous Membr. Moist/[place] Neck: Reports: Supple Lungs: Reports: Clear to Auscultation, Normal Respiratory Effort Cardiovascular: Reports: Regular Rate, Regular Rhythm GI/Abdominal Exam: Normal Bowel Sounds, Soft, Non-Tender Skin: Reports: Warm, Dry Neurological: Reports: No New Focal Deficit *Q Meaningful Use (DIS) - VTE *Q VTE Criteria *Q: - Stroke *Q Stroke Criteria *Q: - AMI *Q AMI Criteria *Q:
== END 2017-09-06 07:30 | disposition home or self-care (01) | DRG 561 ==
LOC: UNDOADMIN 11:11 → CC.MS 11:11
PROVIDERS: ADMIT Physician Assistant Medical; ATTEND Family Medicine
DX: S32.030D Wedge compression fracture of third lumbar vertebra, subsequent encounter for fracture with routine healing (principal); I10 Essential (primary) hypertension; K21.9 Gastro-esophageal reflux disease without esophagitis; F32.9 Major depressive disorder, single episode, unspecified; E78.5 Hyperlipidemia, unspecified
CPT/HCPCS: 81001; 97110-GP; A9270-GY; J1650; J3010

== ENCOUNTER 2018-02-25 18:53 | Emergency (ER) | payer MEDICARE, OTHER ==
[2018-02-25 19:03] VITALS: BP 142/60
--- NOTE | 2018-02-25 19:05 | EDM.PDOC ---
ED HPI GENERAL MEDICAL PROBLEM - General Chief Complaint: General Stated Complaint: FELL Time Seen by Provider: 02/25/18 19:20 Source of Information: Reports: Patient History Limitations: Reports: No Limitations - History of Present Illness INITIAL COMMENTS - FREE TEXT/NARRATIVE: States was outside today and fell and hurt her left ribs and her left hand. Back of left hand is bruised and tender and it hurts when she moves or takes a deep breathe on the left rib area. She thinks she got dizzy but isn't sure. She does have history of falling and losing her balance since she had a stroke several years ago. She denies any other injury. Her son was there when she fell and he denies any loss of consciousness or other injury. Last carotid was done 03/24 and had less than 49% occlusion last echo done at cardiology and no record but son states that they weren't concerned about it. Onset: Today Location: Reports: Chest, Upper Extremity, Left Quality: Reports: Throbbing Left Abdomen Pain Score (Numeric/FACES): 3 - Related Data Allergies Allergy/AdvReac Type Severity Reaction Status Date / Time ciprofloxacin [From Cipro] Allergy Cannot Verified 02/25/18 19:05 Remember ciprofloxacin HCl Allergy Cannot Verified 02/25/18 19:05 [From Cipro] Remember morphine Allergy Cannot Verified 02/25/18 19:05 Remember simvastatin [From Zocor] Allergy Cannot Verified 02/25/18 19:05 Remember Home Meds: Home Meds Ascorbate Calcium/Bioflavonoid [Ofelia-C 1,000 mg Tablet] 1 each PO DAILY [History] Ca Cmb No.1/Vit D3/B-6/FA/B12 [Vitamin D3 1,000 Unit] 1 each PO DAILY 03/03/14 [ History] Calc/D3/Mag/Zn/Heel Coverer Machine Operator/[place] [Calcium 600 MG Plus Vit D] 1 each PO DAILY [History] Cyanocobalamin (Vitamin B12) [Vitamin B12] 1,000 mcg IJ ASDIRECTED 03/03/14 [ History] Esomeprazole [NexIUM] 40 mg PO DAILY 03/03/14 [History] Gabapentin 100 mg PO DAILY 03/03/14 [History] Meclizine [Antivert] 25 mg PO ASDIRECTED PRN 03/03/14 [History] Metoprolol Succinate [Toprol XL 50mg] 50 mg PO DAILY 03/03/14 [History] Rosuvastatin Calcium [Crestor] 5 mg PO DAILY 03/03/14 [History] Sertraline [Zoloft] 50 mg PO BEDTIME 03/03/14 [History] Acetaminophen with Codeine [Tylenol with Codeine #3 Tablet] 1 - 2 tab PO Q8HR PRN 08/29/17 [History] Lisinopril 5 mg PO DAILY 08/29/17 [History] amLODIPine Besylate [Norvasc] 2.5 mg PO DAILY 08/29/17 [History] Past Medical History HEENT 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: Cataract, Hard of Hearing, Impaired Vision Cardiovascular 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: High Cholesterol, Hypertension Gastrointestinal 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: GERD Genitourinary 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: Urinary Incontinence 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 RECORDS 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: Musculoskeletal 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: Arthritis, Back Pain, Chronic Neurological 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: Headaches, Chronic Psychiatric 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: Depression - Past Surgical History HEENT Surgical 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: Cataract Surgery Cardiovascular Surgical 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: Valve Replacement GI Surgical 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: Colonoscopy, EGD Social & Family History - Family History Family Medical History: Noncontributory - Caffeine Use Caffeine Use: Reports: Coffee, Soda ED ROS GENERAL - Review of Systems Review Of Systems: See Below Constitutional: Reports: No Symptoms HEENT: Reports: No Symptoms Respiratory: Reports: No Symptoms Cardiovascular: Reports: No Symptoms GI/Abdominal: Reports: No Symptoms Musculoskeletal: Reports: Other (see HPI) Skin: Reports: Bruising (left hand) Neurological: Reports: Dizziness ED EXAM, GENERAL - Physical Exam Exam: See Below Exam Limited By: No Limitations General Appearance: Alert, Mild Distress Ears: Normal External Exam, Normal Canal, Normal TMs Nose: Normal Inspection Throat/Mouth: Normal Inspection, Normal Oropharynx, Normal Voice Head: Atraumatic, Normocephalic Neck: Normal Inspection, Supple, Non-Tender, Full Range of Motion Respiratory/Chest: No Respiratory Distress, Lungs Clear, Normal Breath Sounds, Other (chest is tender to the left lateral rib cage with palpation) Cardiovascular: Normal Peripheral Pulses, Regular Rate, Rhythm, Other (soft murmur noted.) GI/Abdominal: Normal Bowel Sounds, Soft, Non-Tender Back Exam: Normal Inspection, Full Range of Motion Extremities: Normal Inspection, No Pedal Edema, Other (bruise noted to the left hand.) Neurological: Alert, Oriented Psychiatric: Normal Affect Skin Exam: Warm, Dry, Intact Course - Vital Signs Last Recorded V/S: Last Vital Signs Temp 97.1 F 02/25/18 18:57 Pulse 58 L 02/25/18 18:57 Resp 16 02/25/18 18:57 BP 142/60 H 02/25/18 18:57 Pulse Ox 94 L 02/25/18 18:57 - Orders/Labs/Meds Orders: Active Orders 24 hr Category Date Time Status Chest 2V [CR] Stat Exams 02/25/18 19:04 Taken Hand Comp Min 3V Lt [CR] Stat Exams 02/25/18 19:04 Taken Departure - Departure Time of Disposition: 19:46 Disposition: Home, Self-Care 01 Condition: Good Clinical Impression: Bruised ribs Qualifiers: Encounter type: initial encounter Laterality: left Qualified Code(s): S20.212A - Contusion of left front wall of thorax, initial encounter Traumatic ecchymosis of hand Qualifiers: Encounter type: initial encounter Laterality: left Qualified Code(s): S60.222A - Contusion of left hand, initial encounter - Discharge Information *PRESCRIPTION DRUG MONITORING PROGRAM REVIEWED*: Not Applicable *COPY OF PRESCRIPTION DRUG MONITORING REPORT IN PATIENT ZEYAD: Not Applicable Forms: ED Department Discharge Additional Instructions: Ice to hand and ribs as needed Tylenol as needed for pain You need to get a quad cane to use when you are up walking to help you with your balance. You should use it at all times. You need to wal more to regain your strength Follow up with Dr. Ellsworth as needed for any new concerns. - Problem List & Annotations (1) Bruised ribs SNOMED Code(s): 043213753 Code(s): S20.219A - CONTUSION OF UNSPECIFIED FRONT WALL OF THORAX, INIT ENCNTR Status: Acute Priority: High Current Visit: Yes Qualifiers: Encounter type: initial encounter Laterality: left Qualified Code(s): S20.212A - Contusion of left front wall of thorax, initial encounter (2) Traumatic ecchymosis of hand SNOMED Code(s): 540021004 Code(s): S60.229A - CONTUSION OF UNSPECIFIED HAND, INITIAL ENCOUNTER Status : Acute Priority: Medium Current Visit: Yes Qualifiers: Encounter type: initial encounter Laterality: left Qualified Code(s): S60.222A - Contusion of left hand, initial encounter - Problem List Review Problem List Initiated/Reviewed/Updated: Yes - My Orders Last 24 Hours: My Active Orders 02/25/18 19:04 Chest 2V [CR] Stat Hand Comp Min 3V Lt [CR] Stat - Assessment/Plan Last 24 Hours: My Active Orders 02/25/18 19:04 Chest 2V [CR] Stat Hand Comp Min 3V Lt [CR] Stat
== END 2018-02-25 20:00 | disposition home or self-care (01) ==
LOC: CC.ED 18:53
DX: S20.212A Contusion of left front wall of thorax, initial encounter (principal); S60.222A Contusion of left hand, initial encounter; Z88.8 Allergy status to other drugs, medicaments and biological substances; Z88.5 Allergy status to narcotic agent; Z79.899 Other long term (current) drug therapy; I10 Essential (primary) hypertension; W19.XXXA Unspecified fall, initial encounter
CPT/HCPCS: 71046; 73130-LT; 99284

== ENCOUNTER 2018-04-25 13:25 | Inpatient (IN) | payer MEDICARE, OTHER ==
[2018-04-25] MEDS ORDERED: Zolpidem 5 MG Tab PO PRN (15:12)
[2018-04-25] MEDS ORDERED: Sodium Chloride 0.9% 10 ML Syringe FLUSH PRN (15:12)
[2018-04-25 15:45] LABS: CHLORIDE,CL 108 mEq/L (98-106); SODIUM,NA 143 mEq/L (136-145)
[2018-04-25] MEDS ORDERED: Meclizine 12.5 MG Tab PO PRN (16:01)
[2018-04-25] MEDS: Sertraline 25 MG Tab PO SCH (20:12)
[2018-04-25] MEDS: Sodium Chloride 0.9% 1,000 ML IV SCH (20:30)
[2018-04-26] MEDS: Pantoprazole 40 MG Tab.CR PO SCH ×2 (06:03→07:37)
[2018-04-26] MEDS: Metoprolol Succinate 25 MG Tab.ER PO SCH (07:36)
[2018-04-26] MEDS: Gabapentin 100 MG Cap PO SCH (07:37)
[2018-04-26] MEDS: Clopidogrel 75 MG Tab PO SCH (07:37)
[2018-04-26] MEDS: amLODIPine 2.5 MG Tab PO SCH (07:38)
[2018-04-26] MEDS: Lisinopril 5 MG Tab PO SCH (07:38)
[2018-04-26] MEDS: Sodium Chloride 0.9% 1,000 ML IV SCH (10:15)
[2018-04-26] MEDS: Warfarin 5 MG Tab PO SCH (12:05)
--- NOTE | 2018-04-26 12:25 | PCM.PN ---
- General Info Date of Service: 04/26/18 Admission Dx/Problem (Free Text): recurrent falls weakness Functional Status: Reports: Pain Controlled, Tolerating Diet, Ambulating (with staff) - Review of Systems General: Reports: Weakness, Fatigue, Malaise. Denies: Fever HEENT: Reports: No Symptoms Pulmonary: Denies: Shortness of Breath, Cough, Sputum Cardiovascular: Denies: Chest Pain, Edema, Lightheadedness Gastrointestinal: Denies: Abdominal Pain, Nausea, Vomiting Genitourinary: Reports: No Symptoms Musculoskeletal: Reports: Joint Pain Skin: Reports: No Symptoms Neurological: Reports: Weakness - Patient Data Vitals - Most Recent: Last Vital Signs Temp 99 F 04/26/18 12:00 Pulse 62 04/26/18 12:00 Resp 18 04/26/18 12:00 BP 109/39 L 04/26/18 12:00 Pulse Ox 95 04/26/18 12:00 Weight - Most Recent: 151 lb 9.6 oz I&O - Last 24 Hours: Intake & Output 04/25/18 04/26/18 04/26/18 22:59 06:59 14:59 Intake Total 800 500 963 Output Total 600 Balance 800 -100 963 Lab Results Last 24 Hours: Laboratory Results - last 24 hr 04/25/18 04/25/18 04/25/18 Range/Units 15:12 15:25 15:25 WBC 5.1 (5.0-10.0) 10^3/uL RBC 4.18 (4.00-5.50) 10^6/uL Hgb 12.9 (12.0-16.0) g/dL Hct 39.4 (37.0-47.0) % MCV 94.3 H (82.0-94.0) fL MCH 30.9 (27.0-32.0) pg MCHC 32.7 L (33.0-38.0) g/dL RDW Coeff of Lakhwinder 14.1 (11.0-15.0) % Plt Count 86 L (150-400) 10^3/uL Neut % (Auto) 52.6 (35-85) % Lymph % (Auto) 33.3 (10-55) % [place] % (Auto) 10.2 (0-16) % Eos % (Auto) 3.5 (0-5) % Baso % (Auto) 0.4 (0-3) % Neut # (Auto) 2.67 (1.80-7.00) 10^3/uL Lymph # (Auto) 1.69 (1.00-4.80) 10^3/uL [place] # (Auto) 0.52 (0.00-0.80) 10^3/uL Eos # (Auto) 0.18 (0.00-0.45) 10^3/uL Baso # (Auto) 0.02 10^3/uL PT (9.7-12.3) SEC INR (0.92-1.18) Sodium 143 (136-145) mEq/L Potassium 4.1 (3.5-5.0) mEq/L Chloride 108 H (98-106) mEq/L Carbon Dioxide 29 (21-32) mmol/L BUN 20 H (7-18) mg/dL Creatinine 1.4 H (0.6-1.0) mg/dL Est Cr Clr Drug Dosing TNP Estimated GFR (MDRD) 37 L (>=60) mL/min Glucose 89 (75-99) mg/dL Calcium 9.3 (8.4-10.1) mg/dL Total Bilirubin 1.0 (0.0-1.0) mg/dL AST 65 H (15-37) U/L ALT 34 (12-78) U/L Alkaline Phosphatase 120 H (46-116) U/L Creatine Kinase 283 H (21-215) U/L Troponin I < 0.017 (0.00-0.06) ng/mL Total Protein 7.3 (6.4-8.2) g/dL Albumin 3.2 L (3.4-5.0) g/dL Urine Color Yellow (YELLOW) Urine Appearance Clear (CLEAR) Urine pH 5.5 (4.5-8.0) Ur Specific [place] 1.020 (1.003-1.020) Urine Protein Negative (NEGATIVE) mg/dL Urine Glucose (UA) Negative (NEGATIVE) mg/dL Urine Ketones Negative (NEGATIVE) mg/dL Urine Occult Blood Negative (NEGATIVE) Urine Nitrite Negative (NEGATIVE) Urine Bilirubin Negative (NEGATIVE) Urine Urobilinogen 0.2 (0.2-1.0) EU/dL Ur Leukocyte Esterase Negative (NEGATIVE) Urine RBC Not seen (0-5) /HPF Urine WBC 0-5 (0-5) /HPF Ur Epithelial Cells Few H (NOT SEEN) /HPF Urine Mucus Occasional H (NOT SEEN) /HPF 04/26/18 Range/Units 08:55 WBC (5.0-10.0) 10^3/uL RBC (4.00-5.50) 10^6/uL Hgb (12.0-16.0) g/dL Hct (37.0-47.0) % MCV (82.0-94.0) fL MCH (27.0-32.0) pg MCHC (33.0-38.0) g/dL RDW Coeff of Lakhwinder (11.0-15.0) % Plt Count (150-400) 10^3/uL Neut % (Auto) (35-85) % Lymph % (Auto) (10-55) % [place] % (Auto) (0-16) % Eos % (Auto) (0-5) % Baso % (Auto) (0-3) % Neut # (Auto) (1.80-7.00) 10^3/uL Lymph # (Auto) (1.00-4.80) 10^3/uL [place] # (Auto) (0.00-0.80) 10^3/uL Eos # (Auto) (0.00-0.45) 10^3/uL Baso # (Auto) 10^3/uL PT 10.9 (9.7-12.3) SEC INR 1.05 (0.92-1.18) Sodium (136-145) mEq/L Potassium (3.5-5.0) mEq/L Chloride (98-106) mEq/L Carbon Dioxide (21-32) mmol/L BUN (7-18) mg/dL Creatinine (0.6-1.0) mg/dL Est Cr Clr Drug Dosing Estimated GFR (MDRD) (>=60) mL/min Glucose (75-99) mg/dL Calcium (8.4-10.1) mg/dL Total Bilirubin (0.0-1.0) mg/dL AST (15-37) U/L ALT (12-78) U/L Alkaline Phosphatase (46-116) U/L Creatine Kinase (21-215) U/L Troponin I (0.00-0.06) ng/mL Total Protein (6.4-8.2) g/dL Albumin (3.4-5.0) g/dL Urine Color (YELLOW) Urine Appearance (CLEAR) Urine pH (4.5-8.0) Ur Specific [place] (1.003-1.020) Urine Protein (NEGATIVE) mg/dL Urine Glucose (UA) (NEGATIVE) mg/dL Urine Ketones (NEGATIVE) mg/dL Urine Occult Blood (NEGATIVE) Urine Nitrite (NEGATIVE) Urine Bilirubin (NEGATIVE) Urine Urobilinogen (0.2-1.0) EU/dL Ur Leukocyte Esterase (NEGATIVE) Urine RBC (0-5) /HPF Urine WBC (0-5) /HPF Ur Epithelial Cells (NOT SEEN) /HPF Urine Mucus (NOT SEEN) /HPF Med Orders - Current: Current Medications Amlodipine Besylate (Norvasc) 2.5 mg PO DAILY [facility] Last Admin: 04/26/18 07:38 Dose: 2.5 mg Clopidogrel Bisulfate (Plavix) 75 mg PO DAILY [facility] Last Admin: 04/26/18 07:37 Dose: 75 mg Enoxaparin Sodium (Lovenox) 30 mg SUBCUT Q24H [facility] Gabapentin (Neurontin) 100 mg PO DAILY [facility] Last Admin: 04/26/18 07:37 Dose: 100 mg Sodium Chloride (Normal Saline) 1,000 mls @ 70 mls/hr IV ASDIRECTED [facility] Last Admin: 04/26/18 10:15 Dose: 70 mls/hr Lisinopril (Prinivil) 5 mg PO DAILY [facility] Last Admin: 04/26/18 07:38 Dose: 5 mg Meclizine HCl (Antivert) 25 mg PO ASDIRECTED PRN PRN Reason: DIZZINESS Metoprolol Succinate (Toprol Xl) 50 mg PO DAILY [facility] Last Admin: 04/26/18 07:36 Dose: 50 mg Non-Formulary Medication (Rosuvastatin Calcium [Crestor]) 5 mg PO DAILY [facility] Pantoprazole Sodium (Protonix) 40 mg PO DAILY [facility] Last Admin: 04/26/18 07:37 Dose: 40 mg Sertraline HCl (Zoloft) 50 mg PO BEDTIME [facility] Last Admin: 04/25/18 20:12 Dose: 50 mg Sodium Chloride (Saline Flush) 10 ml FLUSH ASDIRECTED PRN PRN Reason: Keep Vein Open Warfarin Sodium (Coumadin) 5 mg PO DAILY@1200 [facility] Last Admin: 04/26/18 12:05 Dose: 5 mg Zolpidem Tartrate (Ambien) 5 mg PO BEDTIME PRN PRN Reason: Sleep - Exam General: Alert, Oriented HEENT: Mucous Membr. Moist/[place] Neck: Supple Lungs: Clear to Auscultation, Normal Respiratory Effort Cardiovascular: Regular Rate, Regular Rhythm GI/Abdominal Exam: Normal Bowel Sounds, Soft, Non-Tender Extremities: Normal Inspection, No Pedal Edema Skin: Warm, Dry Neurological: No New Focal Deficit - Problem List & Annotations (1) Recurrent falls SNOMED Code(s): 752264719 Code(s): R29.6 - REPEATED FALLS Status: Acute Priority: High Current Visit: Yes (2) Weakness SNOMED Code(s): 35419098 Code(s): R53.1 - WEAKNESS Status: Acute Priority: High Current Visit: Yes (3) Paroxysmal atrial fibrillation SNOMED Code(s): 014324343 Code(s): I48.0 - PAROXYSMAL ATRIAL FIBRILLATION Status: Acute Priority: High Current Visit: Yes - Problem List Review Problem List Initiated/Reviewed/Updated: Yes - My Orders Last 24 Hours: My Active Orders 04/26/18 12:00 Warfarin [Coumadin] 5 mg PO DAILY@1200 04/27/18 05:11 COMPREHENSIVE METABOLIC PN,CMP [CHEM] AM 04/27/18 08:55 INR,PT,PROTHROMBIN TIME [COAG] DAILY 04/28/18 08:55 INR,PT,PROTHROMBIN TIME [COAG] DAILY - Assessment Assessment:: Weakness with recurrent falls Paroxysmal Atrial Fib - Plan Plan:: Patient continues to be weak, complains of generalized malaise. Afebrile. Requires walker and standby assist for ambulation due to weakness. Does have ongoing left wrist pain since February. Did see Giovana Rajput at that time and had xray. Has been wearing a brace since then as she complains of pain with movement. Has not had any recurring injuries to the wrist since that time. Has not had any swelling or bruising as of late. Family concerned about patient 's weakness and immobility. Patient was admitted yesterday and had EKG on arrival that did show atrial fib. Repeat EKG done 4 hours later showed conversion to NSR. Telemetry still shows NSR today. Denies chest pain or shortness of breath. Had echocardiogram and carotid ultrasound yesterday, awaiting report. MRI of the brain done with no acute changes. Labs noted. Does have elevation of her CPK and LDH. Creatinine 1.4. Urine clear. Will continue with IV fluids today, repeat labs tomorrow. Start Coumadin today for paroxysmal atrial fib, follow daily INR. Social service evaluation for assisted placement due inability to care for self while living alone at home.
[2018-04-26] MEDS: Acetaminophen 325 MG Tab PO PRN (17:21)
[2018-04-26] MEDS: Sertraline 25 MG Tab PO SCH (19:37)
[2018-04-26] MEDS: Enoxaparin 30 MG/0.3 ML Syringe SUBCUT SCH ×2 (19:45→19:46)
[2018-04-27] MEDS: Sodium Chloride 0.9% 1,000 ML IV SCH ×2 (00:26→15:05)
[2018-04-27] MEDS: Metoprolol Succinate 25 MG Tab.ER PO SCH (08:02)
[2018-04-27] MEDS: Clopidogrel 75 MG Tab PO SCH (08:03)
[2018-04-27] MEDS: Gabapentin 100 MG Cap PO SCH (08:03)
[2018-04-27] MEDS: Pantoprazole 40 MG Tab.CR PO SCH (08:03)
[2018-04-27] MEDS: amLODIPine 2.5 MG Tab PO SCH (08:03)
[2018-04-27] MEDS: Lisinopril 5 MG Tab PO SCH (08:03)
--- NOTE | 2018-04-27 08:55 | PCM.PN ---
- General Info Date of Service: 04/27/18 Admission Dx/Problem (Free Text): recurrent falls weakness Functional Status: Reports: Pain Controlled, Tolerating Diet, Ambulating - Review of Systems General: Reports: Weakness, Fatigue. Denies: Fever HEENT: Reports: No Symptoms Pulmonary: Denies: Shortness of Breath, Cough Cardiovascular: Denies: Chest Pain, Edema, Lightheadedness Gastrointestinal: Denies: Abdominal Pain, Nausea, Vomiting Genitourinary: Reports: No Symptoms Musculoskeletal: Reports: Joint Pain Skin: Reports: No Symptoms Neurological: Reports: Weakness - Patient Data Vitals - Most Recent: Last Vital Signs Temp 97.6 F 04/27/18 03:59 Pulse 59 L 04/27/18 08:02 Resp 20 04/27/18 03:59 BP 137/50 L 04/27/18 08:03 Pulse Ox 94 L 04/27/18 03:59 Weight - Most Recent: 151 lb 9.6 oz I&O - Last 24 Hours: Intake & Output 04/26/18 04/27/18 04/27/18 22:59 06:59 14:59 Intake Total 900 1193 Output Total 200 275 Balance 700 918 Lab Results Last 24 Hours: Laboratory Results - last 24 hr 04/26/18 04/27/18 04/27/18 Range/Units 08:55 07:00 07:00 PT 10.9 11.0 (9.7-12.3) SEC INR 1.05 1.06 (0.92-1.18) Sodium 146 H (136-145) mEq/L Potassium 4.2 (3.5-5.0) mEq/L Chloride 112 H (98-106) mEq/L Carbon Dioxide 27 (21-32) mmol/L BUN 19 H (7-18) mg/dL Creatinine 1.3 H (0.6-1.0) mg/dL Est Cr Clr Drug Dosing 31.41 mL/min Estimated GFR (MDRD) 40 L (>=60) mL/min Glucose 95 (75-99) mg/dL Calcium 8.4 (8.4-10.1) mg/dL Total Bilirubin 0.5 (0.0-1.0) mg/dL AST 58 H (15-37) U/L ALT 31 (12-78) U/L Alkaline Phosphatase 124 H (46-116) U/L Creatine Kinase 260 H (21-215) U/L Total Protein 6.3 L (6.4-8.2) g/dL Albumin 2.5 L (3.4-5.0) g/dL Med Orders - Current: Current Medications Acetaminophen (Tylenol) 650 mg PO Q4H PRN PRN Reason: Pain Last Admin: 04/26/18 17:21 Dose: 650 mg Amlodipine Besylate (Norvasc) 2.5 mg PO DAILY [facility] Last Admin: 04/27/18 08:03 Dose: 2.5 mg Clopidogrel Bisulfate (Plavix) 75 mg PO DAILY [facility] Last Admin: 04/27/18 08:03 Dose: 75 mg Gabapentin (Neurontin) 100 mg PO DAILY [facility] Last Admin: 04/27/18 08:03 Dose: 100 mg Sodium Chloride (Normal Saline) 1,000 mls @ 70 mls/hr IV ASDIRECTED [facility] Last Admin: 04/27/18 00:26 Dose: 70 mls/hr Lisinopril (Prinivil) 5 mg PO DAILY [facility] Last Admin: 04/27/18 08:03 Dose: 5 mg Meclizine HCl (Antivert) 25 mg PO ASDIRECTED PRN PRN Reason: DIZZINESS Metoprolol Succinate (Toprol Xl) 50 mg PO DAILY [facility] Last Admin: 04/27/18 08:02 Dose: 50 mg Ptom Rosuvastatin Calcium [Crestor] 10 Mg Tab 5 mg PO DAILY [facility] Pantoprazole Sodium (Protonix) 40 mg PO DAILY [facility] Last Admin: 04/27/18 08:03 Dose: 40 mg Sertraline HCl (Zoloft) 50 mg PO BEDTIME [facility] Last Admin: 04/26/18 19:37 Dose: 50 mg Sodium Chloride (Saline Flush) 10 ml FLUSH ASDIRECTED PRN PRN Reason: Keep Vein Open Warfarin Sodium (Coumadin) 5 mg PO DAILY@1200 [facility] Last Admin: 04/26/18 12:05 Dose: 5 mg Zolpidem Tartrate (Ambien) 5 mg PO BEDTIME PRN PRN Reason: Sleep Discontinued Medications Enoxaparin Sodium (Lovenox) 30 mg SUBCUT Q24H [facility] Last Admin: 04/26/18 19:46 Dose: Not Given - Exam General: Alert, Oriented HEENT: Mucous Membr. Moist/[place] Neck: Supple Lungs: Clear to Auscultation, Normal Respiratory Effort Cardiovascular: Regular Rate, Regular Rhythm GI/Abdominal Exam: Normal Bowel Sounds, Soft, Non-Tender Extremities: Normal Inspection, No Pedal Edema Skin: Warm, Dry Neurological: No New Focal Deficit - Problem List & Annotations (1) Recurrent falls SNOMED Code(s): 497989674 Code(s): R29.6 - REPEATED FALLS Status: Acute Priority: High Current Visit: Yes (2) Weakness SNOMED Code(s): 83174732 Code(s): R53.1 - WEAKNESS Status: Acute Priority: High Current Visit: Yes (3) Paroxysmal atrial fibrillation SNOMED Code(s): 583711709 Code(s): I48.0 - PAROXYSMAL ATRIAL FIBRILLATION Status: Acute Priority: High Current Visit: Yes - Problem List Review Problem List Initiated/Reviewed/Updated: Yes - My Orders Last 24 Hours: My Active Orders 04/26/18 12:00 Warfarin [Coumadin] 5 mg PO DAILY@1200 04/26/18 12:26 Consult to Case Management/Data Integrity Consultant [CONS] Routine Consult to Physical Therapy [PT Evaluation and Treatment] [CONS] Routine 04/26/18 17:05 Acetaminophen [Tylenol] 650 mg PO Q4H PRN 04/28/18 05:11 C-REACTIVE PROTEIN [CHEM] AM COMPREHENSIVE METABOLIC PN,CMP [CHEM] AM 04/28/18 08:55 INR,PT,PROTHROMBIN TIME [COAG] DAILY - Assessment Assessment:: Weakness with recurrent falls Paroxysmal Atrial Fib - Plan Plan:: Patient continues to be weak, complains of generalized malaise. Afebrile. Requires walker and standby assist for ambulation due to weakness. Does have ongoing left wrist pain since February. Did see Giovana Rajput at that time and had xray. Has been wearing a brace since then as she complains of pain with movement. Has not had any recurring injuries to the wrist since that time. Has not had any swelling or bruising as of late. Family concerned about patient 's weakness and immobility. Patient was admitted yesterday and had EKG on arrival that did show atrial fib. Repeat EKG done 4 hours later showed conversion to NSR. Telemetry still shows NSR today. Denies chest pain or shortness of breath. Had echocardiogram and carotid ultrasound yesterday, awaiting report. MRI of the brain done with no acute changes. Labs noted. Does have elevation of her CPK and LDH. Creatinine 1.4. Urine clear. Will continue with IV fluids today, repeat labs tomorrow. Start Coumadin today for paroxysmal atrial fib, follow daily INR. Social service evaluation for [facility]dc placement due inability to care for self while living alone at home. 04-27-18 Patient doing well, only complaint is her wrist gets sore when having to use it more with transfers, walker and such. States legs continue to be weak, feels unsteady but is walking to the bathroom and was out in the halls yesterday with PT. Continues in NSR. Covered with Coumadin. INR today 1.05, has only received one dose thus far. CK is trending down at 260 today. Carotid ultrasound reports shows less than 50% stenosis. Will continue with PT. Follow daily INR. Plan to transfer to [facility] tomorrow.
[2018-04-27] MEDS: ROSUVASTATIN CALCIUM 10 MG PO SCH (09:53)
[2018-04-27] MEDS: Warfarin 5 MG Tab PO SCH (12:52)
[2018-04-27] MEDS: Sertraline 25 MG Tab PO SCH (19:27)
[2018-04-28] MEDS: Acetaminophen 325 MG Tab PO PRN ×2 (02:04→08:23)
[2018-04-28] MEDS: Sodium Chloride 0.9% 1,000 ML IV SCH (05:26)
[2018-04-28] MEDS: Metoprolol Succinate 25 MG Tab.ER PO SCH (08:20)
[2018-04-28] MEDS: Clopidogrel 75 MG Tab PO SCH (08:20)
[2018-04-28] MEDS: Lisinopril 5 MG Tab PO SCH (08:20)
[2018-04-28] MEDS: Gabapentin 100 MG Cap PO SCH (08:20)
[2018-04-28] MEDS: Pantoprazole 40 MG Tab.CR PO SCH (08:20)
[2018-04-28] MEDS: amLODIPine 2.5 MG Tab PO SCH (08:20)
[2018-04-28] MEDS: ROSUVASTATIN CALCIUM 10 MG PO SCH (08:21)
[2018-04-28 08:23] VITALS: BP 126/48
--- NOTE | 2018-04-30 20:13 | PCM.DCSUM1 ---
Discharge Summary - Hospital Course Free Text/Narrative:: Patient presented to clinic for recurrent falls. Has increasing weakness. Had fallen 2 months ago and hurt wrist, xrays done at that time were negative. Family concerned about balance and falls. History of CVA, currently on Plavix. Irregular heart rhythm noted by exam in clinic. Echocardiogram, labs, and EKG ordered on admit. Initial labs show normal WBC. Elevated CPK. Physical therapy ordered with consideration for jail placement for rehab. Diagnosis: Stroke: No Modified [place] Scale: No Symptoms at All Modified [place] Scale Score: 0 - Discharge Data Discharge Date: 04/28/18 Discharge Disposition: DC/Tfer to SNF 03 Condition: Good - Discharge Diagnosis/Problem(s) (1) Recurrent falls SNOMED Code(s): 039206680 ICD Code: R29.6 - REPEATED FALLS Status: Acute Priority: High (2) Weakness SNOMED Code(s): 63093763 ICD Code: R53.1 - WEAKNESS Status: Acute Priority: High (3) Paroxysmal atrial fibrillation SNOMED Code(s): 201403902 ICD Code: I48.0 - PAROXYSMAL ATRIAL FIBRILLATION Status: Acute Priority: High - Patient Summary/Data Complications: none Consults: Consultations 04/26/18 12:26 Consult to Case Management/Screw Machine Operator Single Spindle [CONS] Routine Consult to Physical Therapy [PT Evaluation and Treatment] [CONS] Routine Hospital Course: Patient feeling good. Feels unsteady with walker but ambulating with PT. EKG on admit noted to have atrial fib but did convert to NSR. MRI of the brain negative for acute changes. Coumadin started due to history of CVA and paroxysmal atrial fib noted. Patient has not had any chest pain or shortness of breath. Echocardiogram and carotid ultrasound done, awaiting report. Transfer today to [facility] for ongoing rehab due to recurrent falls. - Patient Instructions Diet: Usual Diet as Tolerated Activity: As Tolerated - Discharge Plan *PRESCRIPTION DRUG MONITORING PROGRAM REVIEWED*: No *COPY OF PRESCRIPTION DRUG MONITORING REPORT IN PATIENT ZEYAD: No Prescriptions/Med Rec: Warfarin [Coumadin] 5 mg PO DAILY@1200 #30 tablet Home Medications: Home Meds Gabapentin 100 mg PO DAILY 03/03/14 [History] Meclizine [Antivert] 25 mg PO ASDIRECTED PRN 03/03/14 [History] Metoprolol Succinate [Toprol XL 50mg] 50 mg PO DAILY 03/03/14 [History] Rosuvastatin Calcium [Crestor] 5 mg PO DAILY 03/03/14 [History] Sertraline [Zoloft] 50 mg PO BEDTIME 03/03/14 [History] Acetaminophen with Codeine [Tylenol with Codeine #3 Tablet] 1 - 2 tab PO Q8HR PRN 08/29/17 [History] Lisinopril 5 mg PO DAILY 08/29/17 [History] amLODIPine Besylate [Norvasc] 2.5 mg PO DAILY 08/29/17 [History] Clopidogrel Bisulfate [Clopidogrel] 75 mg PO DAILY 04/25/18 [History] Pantoprazole Sodium 40 mg PO DAILY 04/25/18 [History] Warfarin [Coumadin] 5 mg PO DAILY@1200 #30 tablet 04/28/18 [Rx] - Discharge Summary/Plan Comment DC Time >30 min.: Yes Discharge Summary/Plan Comment: Discharge patient to jail today. Time spent with patient 15 minutes with all questions answered. Time for orders 10 minutes Time for documentation 15 minutes. - General Info Date of Service: 04/28/18 Admission Dx/Problem (Free Text: recurrent falls weakness Functional Status: Reports: Pain Controlled, Tolerating Diet, Ambulating - Review of Systems General: Reports: Weakness, Fatigue. Denies: Fever HEENT: Reports: No Symptoms Pulmonary: Denies: Cough Cardiovascular: Denies: Chest Pain, Edema, Lightheadedness Gastrointestinal: Denies: Abdominal Pain, Nausea, Vomiting Musculoskeletal: Reports: Joint Pain Skin: Reports: No Symptoms Neurological: Reports: Weakness - Patient Data Vitals - Most Recent: Last Vital Signs Temp 98.9 F 04/28/18 08:00 Pulse 63 04/28/18 08:20 Resp 20 04/28/18 08:00 BP 126/48 L 04/28/18 08:20 Pulse Ox 95 04/28/18 08:00 Weight - Most Recent: 151 lb 9.6 oz Med Orders - Current: Current Medications Discontinued Medications Acetaminophen (Tylenol) 650 mg PO Q4H PRN PRN Reason: Pain Last Admin: 04/28/18 08:23 Dose: 650 mg Amlodipine Besylate (Norvasc) 2.5 mg PO DAILY [facility] Last Admin: 04/28/18 08:20 Dose: 2.5 mg Clopidogrel Bisulfate (Plavix) 75 mg PO DAILY [facility] Last Admin: 04/28/18 08:20 Dose: 75 mg Enoxaparin Sodium (Lovenox) 30 mg SUBCUT Q24H [facility] Last Admin: 04/26/18 19:46 Dose: Not Given Gabapentin (Neurontin) 100 mg PO DAILY [facility] Last Admin: 04/28/18 08:20 Dose: 100 mg Sodium Chloride (Normal Saline) 1,000 mls @ 70 mls/hr IV ASDIRECTED [facility] Last Admin: 04/28/18 05:26 Dose: 70 mls/hr Lisinopril (Prinivil) 5 mg PO DAILY [facility] Last Admin: 04/28/18 08:20 Dose: 5 mg Meclizine HCl (Antivert) 25 mg PO ASDIRECTED PRN PRN Reason: DIZZINESS Metoprolol Succinate (Toprol Xl) 50 mg PO DAILY [facility] Last Admin: 04/28/18 08:20 Dose: 50 mg Ptom Rosuvastatin Calcium [Crestor] 10 Mg Tab 5 mg PO DAILY [facility] Last Admin: 04/28/18 08:21 Dose: 5 mg Pantoprazole Sodium (Protonix) 40 mg PO DAILY [facility] Last Admin: 04/28/18 08:20 Dose: 40 mg Sertraline HCl (Zoloft) 50 mg PO BEDTIME [facility] Last Admin: 04/27/18 19:27 Dose: 50 mg Sodium Chloride (Saline Flush) 10 ml FLUSH ASDIRECTED PRN PRN Reason: Keep Vein Open Warfarin Sodium (Coumadin) 5 mg PO DAILY@1200 [facility] Last Admin: 04/27/18 12:52 Dose: 5 mg Zolpidem Tartrate (Ambien) 5 mg PO BEDTIME PRN PRN Reason: Sleep - Exam General: Reports: Alert, Oriented HEENT: Reports: Mucous Membr. Moist/[place] Neck: Reports: Supple Lungs: Reports: Clear to Auscultation, Normal Respiratory Effort Cardiovascular: Reports: Regular Rate, Regular Rhythm GI/Abdominal Exam: Normal Bowel Sounds, Soft, Non-Tender Extremities: Normal Inspection, No Pedal Edema Skin: Reports: Warm, Dry Neurological: Reports: No New Focal Deficit
== END 2018-04-28 10:15 | DRG 310 ==
LOC: UNDOADMIN 13:25 → CC.MS 13:25
PROVIDERS: ADMIT Family Medicine; ATTEND Family Medicine
DX: I48.0 Paroxysmal atrial fibrillation (principal); R29.6 Repeated falls; M25.532 Pain in left wrist; F32.9 Major depressive disorder, single episode, unspecified; K21.9 Gastro-esophageal reflux disease without esophagitis; G89.29 Other chronic pain; M54.5 Low back pain; E78.5 Hyperlipidemia, unspecified; G62.9 Polyneuropathy, unspecified; Z88.8 Allergy status to other drugs, medicaments and biological substances; Z79.899 Other long term (current) drug therapy; Z79.02 Long term (current) use of antithrombotics/antiplatelets; Z86.73 Personal history of transient ischemic attack (TIA), and cerebral infarction without residual deficits; Z95.2 Presence of prosthetic heart valve
CPT/HCPCS: 36415; 70551; 71046; 80053; 81001; 82550; 84484; 85025; 85610; 86140; 93005; 93306; 93880; 97110-GP; 97161-GP; A9270-GY; J7030

== ENCOUNTER 2019-11-06 15:16 | Inpatient (IN) | payer MEDICARE, OTHER ==
--- NOTE | 2019-11-06 17:35 | EDM.PDOC ---
ED HPI GENERAL MEDICAL PROBLEM - General Chief Complaint: General Stated Complaint: SOB Time Seen by Provider: 11/06/19 15:30 Source of Information: Reports: Patient History Limitations: Reports: No Limitations - History of Present Illness INITIAL COMMENTS - FREE TEXT/NARRATIVE: Jo-Ann is a 74 yo female who is brought into the ED via [facility] with complaints of weakness and shortness of breath. She admits to having weakness for a long time and chest discomfort. States her son wanted her to be checked out and he called the ambulance. She admits to left sided chest pain but this is chronic. Denies any new onset of symptoms besides worsening weakness and shortness of breath. She does have some mild dementia. States she isn't sure if she can continue to take care of herself and would like to look into going back into the [place] [facility]. - Related Data Allergies Allergy/AdvReac Type Severity Reaction Status Date / Time ciprofloxacin [From Cipro] Allergy Cannot Verified 11/06/19 15:26 Remember ciprofloxacin HCl Allergy Cannot Verified 11/06/19 15:26 [From Cipro] Remember morphine Allergy Cannot Verified 11/06/19 15:26 Remember simvastatin [From Zocor] Allergy Cannot Verified 11/06/19 15:26 Remember Home Meds: Home Meds Gabapentin 100 mg PO DAILY 03/03/14 [History] Meclizine [Antivert] 25 mg PO ASDIRECTED PRN 03/03/14 [History] Metoprolol Succinate [Toprol XL 50mg] 50 mg PO DAILY 03/03/14 [History] Rosuvastatin Calcium [Crestor] 5 mg PO DAILY 03/03/14 [History] Sertraline [Zoloft] 50 mg PO BEDTIME 03/03/14 [History] Lisinopril 5 mg PO DAILY 08/29/17 [History] amLODIPine Besylate [Norvasc] 2.5 mg PO DAILY 08/29/17 [History] Clopidogrel Bisulfate [Clopidogrel] 75 mg PO DAILY 04/25/18 [History] Pantoprazole Sodium 40 mg PO DAILY 04/25/18 [History] Warfarin [Coumadin] 2.5 mg PO DAILY@1200 11/06/19 [History] Past Medical History HEENT 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: Cataract, Hard of Hearing, Impaired Vision Cardiovascular 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: High Cholesterol, Hypertension Gastrointestinal 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: GERD Genitourinary 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: Urinary Incontinence 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: Musculoskeletal 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: Arthritis, Back Pain, Chronic Neurological 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: Headaches, Chronic Psychiatric 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: Depression - Past Surgical History HEENT Surgical 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: Cataract Surgery Cardiovascular Surgical 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: Valve Replacement GI Surgical 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: Colonoscopy, EGD Social & Family History - Family History Family Medical History: Noncontributory - Tobacco Use Smoking Status *Q: Never Smoker - Caffeine Use Caffeine Use: Reports: Coffee, Soda ED ROS GENERAL - Review of Systems Review Of Systems: See Below Constitutional: Reports: Weakness, Fatigue. Denies: Fever, Chills HEENT: Reports: Hearing Loss. Denies: Rhinitis, Sinus Problem, Throat Pain Respiratory: Reports: Shortness of Breath, Cough (chronic). Denies: Wheezing Cardiovascular: Reports: Chest Pain (chronic), Dyspnea on Exertion, Edema Endocrine: Reports: No Symptoms GI/Abdominal: Reports: No Symptoms : Reports: No Symptoms Musculoskeletal: Reports: No Symptoms Skin: Reports: No Symptoms Neurological: Reports: Headache (earlier today but has subsided), Pre-Existing Deficit (dementia) ED EXAM, GENERAL - Physical Exam Exam: See Below Exam Limited By: No Limitations General Appearance: Alert, No Apparent Distress Ears: Normal External Exam, Normal Canal, Normal TMs, Hearing Loss Nose: Normal Inspection, Normal Mucosa, No Blood Throat/Mouth: Normal Inspection, Normal Lips, Normal Teeth, Normal Gums, Normal Oropharynx, Normal Voice, No Airway Compromise Head: Atraumatic, Normocephalic Neck: Normal Inspection, Supple Respiratory/Chest: No Respiratory Distress, Decreased Breath Sounds (bilateral lower lobes). No: Respiratory Distress, Rhonchi, Wheezing, Stridor, Accessory Muscle Use Cardiovascular: Regular Rate, Rhythm, Systolic Murmur Peripheral Pulses: 1+: Posterior Tibial (L), Posterior Tibial (R), Dorsalis Pedis (L), Dorsalis Pedis (R) GI/Abdominal: Normal Bowel Sounds, Soft, Non-Tender, No Organomegaly, No Distention Extremities: Pedal Edema (bilateral 1+) Neurological: Alert, No Motor/Sensory Deficits Psychiatric: Normal Affect, Normal Mood Course - Vital Signs Last Recorded V/S: Last Vital Signs Temp 97.1 F 11/06/19 15:31 Pulse 64 11/06/19 15:31 Resp 16 11/06/19 15:31 BP 122/58 L 11/06/19 15:31 Pulse Ox 94 L 11/06/19 15:31 - Orders/Labs/Meds Orders: Active Orders 24 hr Category Date Time Status Patient Status Manage Transfer [TRANSFER] Routine ADT 11/06/19 17:24 Ordered Chest 2V [CR] Stat Exams 11/06/19 15:37 Taken PRO B-TYPE NATRIUR PEPT,BNPPRO [CHEM] Routine Lab 11/06/19 17:30 Received PROLACTIN [REF] Stat Lab 11/06/19 15:37 Ordered Isolation [COMM] Routine Oth 11/06/19 15:38 Active Resuscitation Status Routine Resus Stat 11/06/19 17:13 Ordered Labs: Laboratory Tests 11/06/19 11/06/19 11/06/19 Range/Units 15:37 15:37 15:37 WBC 4.2 L (5.0-10.0) 10^3/uL RBC 3.18 L (4.00-5.50) 10^6/uL Hgb 9.6 L (12.0-16.0) g/dL Hct 31.2 L (37.0-47.0) % MCV 98.1 H (82.0-94.0) fL MCH 30.2 (27.0-32.0) pg MCHC 30.8 L (33.0-38.0) g/dL RDW Coeff of Lakhwinder 15.1 H (11.0-15.0) % Plt Count 81 L (150-400) 10^3/uL Neut % (Auto) 50.0 (35-85) % Lymph % (Auto) 31.4 (10-55) % [place] % (Auto) 14.6 (0-16) % Eos % (Auto) 3.8 (0-5) % Baso % (Auto) 0.2 (0-3) % Neut # (Auto) 2.08 (1.80-7.00) 10^3/uL Lymph # (Auto) 1.31 (1.00-4.80) 10^3/uL [place] # (Auto) 0.61 (0.00-0.80) 10^3/uL Eos # (Auto) 0.16 (0.00-0.45) 10^3/uL Baso # (Auto) 0.01 10^3/uL PT (9.7-12.3) SEC INR (0.92-1.18) Sodium 143 (136-145) mEq/L Potassium 4.3 (3.5-5.0) mEq/L Chloride 109 H (98-106) mEq/L Carbon Dioxide 27 (21-32) mmol/L BUN 20 H (7-18) mg/dL Creatinine 1.4 H (0.6-1.0) mg/dL Est Cr Clr Drug Dosing 28.72 mL/min Estimated GFR (MDRD) 37 L (>=60) mL/min Glucose 124 H (75-99) mg/dL Lactic Acid 1.3 (0.4-2.0) mmol/L Calcium 8.5 (8.4-10.1) mg/dL Total Bilirubin 0.6 (0.0-1.0) mg/dL AST 41 H (15-37) U/L ALT 18 (12-78) U/L Alkaline Phosphatase 106 (46-116) U/L C-Reactive Protein 1.2 H (0.2-0.8) mg/dL Total Protein 6.6 (6.4-8.2) g/dL Albumin 2.7 L (3.4-5.0) g/dL Urine Color (YELLOW) Urine Appearance (CLEAR) Urine pH (4.5-8.0) Ur Specific [place] (1.003-1.020) Urine Protein (NEGATIVE) mg/dL Urine Glucose (UA) (NEGATIVE) mg/dL Urine Ketones (NEGATIVE) mg/dL Urine Occult Blood (NEGATIVE) Urine Nitrite (NEGATIVE) Urine Bilirubin (NEGATIVE) Urine Urobilinogen (0.2-1.0) EU/dL Ur Leukocyte Esterase (NEGATIVE) Urine RBC (0-5) /HPF Urine WBC (0-5) /HPF 11/06/19 11/06/19 Range/Units 15:50 16:23 WBC (5.0-10.0) 10^3/uL RBC (4.00-5.50) 10^6/uL Hgb (12.0-16.0) g/dL Hct (37.0-47.0) % MCV (82.0-94.0) fL MCH (27.0-32.0) pg MCHC (33.0-38.0) g/dL RDW Coeff of Lakhwinder (11.0-15.0) % Plt Count (150-400) 10^3/uL Neut % (Auto) (35-85) % Lymph % (Auto) (10-55) % [place] % (Auto) (0-16) % Eos % (Auto) (0-5) % Baso % (Auto) (0-3) % Neut # (Auto) (1.80-7.00) 10^3/uL Lymph # (Auto) (1.00-4.80) 10^3/uL [place] # (Auto) (0.00-0.80) 10^3/uL Eos # (Auto) (0.00-0.45) 10^3/uL Baso # (Auto) 10^3/uL PT 42.4 H (9.7-12.3) SEC INR 4.26 H* (0.92-1.18) Sodium (136-145) mEq/L Potassium (3.5-5.0) mEq/L Chloride (98-106) mEq/L Carbon Dioxide (21-32) mmol/L BUN (7-18) mg/dL Creatinine (0.6-1.0) mg/dL Est Cr Clr Drug Dosing mL/min Estimated GFR (MDRD) (>=60) mL/min Glucose (75-99) mg/dL Lactic Acid (0.4-2.0) mmol/L Calcium (8.4-10.1) mg/dL Total Bilirubin (0.0-1.0) mg/dL AST (15-37) U/L ALT (12-78) U/L Alkaline Phosphatase (46-116) U/L C-Reactive Protein (0.2-0.8) mg/dL Total Protein (6.4-8.2) g/dL Albumin (3.4-5.0) g/dL Urine Color Yellow (YELLOW) Urine Appearance Clear (CLEAR) Urine pH 5.5 (4.5-8.0) Ur Specific [place] 1.020 (1.003-1.020) Urine Protein Negative (NEGATIVE) mg/dL Urine Glucose (UA) Negative (NEGATIVE) mg/dL Urine Ketones Negative (NEGATIVE) mg/dL Urine Occult Blood Trace-intact H (NEGATIVE) Urine Nitrite Negative (NEGATIVE) Urine Bilirubin Negative (NEGATIVE) Urine Urobilinogen 0.2 (0.2-1.0) EU/dL Ur Leukocyte Esterase Negative (NEGATIVE) Urine RBC Not seen (0-5) /HPF Urine WBC Not seen (0-5) /HPF Departure - Departure Time of Disposition: 17:20 Disposition: Admitted As Inpatient 65 Clinical Impression: CHF, Congestive heart failure, Weakness - Discharge Information Referrals: PCP,Unobtain [Primary Care Provider] - Sepsis Event Note - Evaluation Sepsis Screening Result: No Definite Risk - Focused Exam Vital Signs: Vital Signs Temp Pulse Resp BP Pulse Ox 11/06/19 15:31 97.1 F 64 16 122/58 L 94 L Date Exam was Performed: 11/06/19 Time Exam was Performed: 17:30 - Problem List & Annotations (1) CHF, Congestive heart failure SNOMED Code(s): 12771167 Code(s): I50.9 - HEART FAILURE, UNSPECIFIED Status: Acute Current Visit: Yes (2) Weakness SNOMED Code(s): 34199244 Code(s): R53.1 - WEAKNESS Status: Acute Priority: High Current Visit: Yes (3) Anticoagulated on Coumadin SNOMED Code(s): 67683111 Code(s): Z79.01 - CONTRACT ANALYST (CURRENT) USE OF ANTICOAGULANTS Status: Acute Current Visit: Yes - My Orders Last 24 Hours: My Active Orders 11/06/19 15:37 Chest 2V [CR] Stat PROLACTIN [REF] Stat 11/06/19 15:38 Isolation [COMM] Routine 11/06/19 17:13 Resuscitation Status Routine 11/06/19 17:24 Patient Status Manage Transfer [TRANSFER] Routine - Assessment/Plan Admission H&P: Please use this note as an admission H&P Last 24 Hours: My Active Orders 11/06/19 15:37 Chest 2V [CR] Stat PROLACTIN [REF] Stat 11/06/19 15:38 Isolation [COMM] Routine 11/06/19 17:13 Resuscitation Status Routine 11/06/19 17:24 Patient Status Manage Transfer [TRANSFER] Routine Plan: Consulted with Dr. Ellsworth, patient's primary provider. Will admit under acute care to Dr. Ellsworth's services. Chest x-ray did show bilateral small pleural effusions. Will give Lasix IV. PT ordered for strengthening. Dr. Ellsworth in agreement with admission. Pro BNP is pending.
[2019-11-06] MEDS ORDERED: Non-Formulary Medication 1 Each (Meclizine [Antivert] 25 MG) PO PRN ×2 (17:52→19:44)
[2019-11-06] MEDS ORDERED: Furosemide 40 MG/4 ML VIAL IVPUSH ONE (17:52)
[2019-11-06] MEDS ORDERED: Sodium Chloride 0.9% 10 ML Syringe FLUSH PRN (17:52)
[2019-11-06] MEDS ORDERED: Docusate Sodium 100 MG Cap PO PRN (17:52)
[2019-11-06] MEDS ORDERED: Acetaminophen 325 MG Tab PO PRN (17:52)
[2019-11-06] MEDS ORDERED: Meclizine 12.5 MG Tab PO PRN (19:54)
[2019-11-06] MEDS ORDERED: Sertraline 25 MG Tab PO SCH (20:00)
[2019-11-06] MEDS: ROSUVASTATIN CALCIUM 5 MG PO SCH (20:06)
[2019-11-07] MEDS ORDERED: Gabapentin 100 MG Cap PO SCH (08:00)
[2019-11-07] MEDS ORDERED: Clopidogrel 75 MG Tab PO SCH (08:00)
[2019-11-07] MEDS ORDERED: Pantoprazole 40 MG Tab.CR PO SCH (08:00)
[2019-11-07] MEDS ORDERED: Metoprolol Succinate 25 MG Tab.ER PO SCH (08:00)
[2019-11-07] MEDS ORDERED: Furosemide 40 MG/4 ML VIAL IVPUSH SCH (08:00)
[2019-11-07] MEDS ORDERED: Lisinopril 5 MG Tab PO SCH (08:00)
[2019-11-07] MEDS ORDERED: amLODIPine 2.5 MG Tab PO SCH (08:00)
[2019-11-07] MEDS ORDERED: Acetaminophen 325 MG Tab PO PRN (12:56)
[2019-11-07] MEDS ORDERED: Docusate Sodium 100 MG Cap PO PRN (12:57)
[2019-11-07] MEDS ORDERED: Acetaminophen 325 MG Tab ONE (13:02)
[2019-11-07] MEDS ORDERED: Sodium Chloride 0.9% 10 ML Syringe FLUSH PRN (13:05)
--- NOTE | 2019-11-07 13:36 | PN ---
DATE: 11/07/2019 S: Jo-Ann was admitted yesterday by Mak for weakness. She is kind of at risk female who suffers from dementia, is starting to have a harder time caring for self at home. She was apparently very weak at home. The family called the ambulance and she was brought to our facility. At the time she was admitted, she had no signs of infection. Urine and influenza tests were negative. She had significant amount of peripheral edema. She has a history of aortic valve replacement and her BNP was up slightly at 782. She suffers from pancytopenia, and in the past, she has been at the [facility] for placement and I believe the family feels she needs it at this point. O: VITAL SIGNS: When I examined her today, she has normal vital signs. She is afebrile. Blood pressure is fine. Saturations were 96% on room air. HEENT: Benign. NECK: Neck veins are flat. LUNGS: Clear, maybe some minimal basilar crackles. CARDIAC: Tones are regular without aortic valve heard. ABDOMEN: Soft. EXTREMITIES: She is still with trace ankle edema, although she says it has markedly improved. ASSESSMENT: 1. WEAKNESS. 2. DEMENTIA. 3. PANCYTOPENIA. 4. MILD CONGESTIVE HEART FAILURE. 5. HISTORY OF VALVE REPLACEMENT. P: We are going to get Still Operator Brandy consult for placement to [facility] where she has been in the past. We will get a peripheral blood smear, B12, folate and evaluate her pancytopenia. We will put her on a daily low dose of oral Lasix. Otherwise, no changes. She was supratherapeutic on her INR at just over 4 on admit. We will do daily INRs at this time. CARMELO/TAD /[id number]
[2019-11-07] MEDS: Sertraline 25 MG Tab PO SCH (19:32)
[2019-11-07] MEDS: ROSUVASTATIN CALCIUM 5 MG PO SCH (19:45)
[2019-11-08] MEDS: Gabapentin 100 MG Cap PO SCH (07:21)
[2019-11-08] MEDS: Clopidogrel 75 MG Tab PO SCH (07:21)
[2019-11-08] MEDS: Pantoprazole 40 MG Tab.CR PO SCH (07:22)
[2019-11-08] MEDS: Furosemide 20 MG Tab PO SCH (07:22)
[2019-11-08] MEDS: Lisinopril 5 MG Tab PO SCH (07:33)
[2019-11-08] MEDS: amLODIPine 2.5 MG Tab PO SCH (07:33)
[2019-11-08] MEDS: Metoprolol Succinate 25 MG Tab.ER PO SCH (07:35)
--- NOTE | 2019-11-08 13:00 | PN ---
DATE: 11/08/2019 S: Jo-Ann continues to do well. Her vital signs have been stable. She had a low-grade temperature yesterday, was 99.3 this morning. She really denies any shortness of breath or cough. She is saturating in the low 90s for the most part. Her peripheral edema is markedly improved, and for the most part, she has had no issues. There is a question of possible exposure to COVID and we are waiting on her COVID testing, which should be back later today. We are anticipating custodial placement as she has had a prior cerebellar CVA and is just unable to care for herself at home anymore. O: GENERAL: Her exam today shows her to be pleasant and cooperative. HEENT: Grossly benign. NECK: Supple. LUNGS: Sounds are improved with clear bases. CARDIAC: Tones are regular. Aortic murmur unchanged. EXTREMITIES: Lower extremities have resolution of edema. ASSESSMENT: 1. MILD CONGESTIVE HEART FAILURE, IMPROVED. 2. WEAKNESS. 3. PANCYTOPENIA. 4. DEMENTIA. 5. STATUS POST AORTIC VALVE REPLACEMENT. P: Melina looks pretty good now. Waiting on COVID testing and she remains in isolation. We are going to continue her on a low-dose of daily Lasix. Peripheral blood smear is pending for evaluation of her pancytopenia. B12 and folate levels were done yesterday and normal. Her INR is back into a therapeutic range and we will resume her Coumadin at a slightly lower dose. Otherwise, no anticipated changes today. CARMELO/TAD /[id number]
[2019-11-08] MEDS: ROSUVASTATIN CALCIUM 5 MG PO SCH (19:42)
[2019-11-08] MEDS: Sertraline 25 MG Tab PO SCH (19:42)
[2019-11-09] MEDS: Metoprolol Succinate 25 MG Tab.ER PO SCH (07:41)
[2019-11-09] MEDS: Gabapentin 100 MG Cap PO SCH (07:41)
[2019-11-09] MEDS: Lisinopril 5 MG Tab PO SCH (07:41)
[2019-11-09] MEDS: Clopidogrel 75 MG Tab PO SCH (07:42)
[2019-11-09] MEDS: Pantoprazole 40 MG Tab.CR PO SCH (07:42)
[2019-11-09] MEDS: amLODIPine 2.5 MG Tab PO SCH (07:42)
[2019-11-09] MEDS: Furosemide 20 MG Tab PO SCH (07:42)
[2019-11-09 07:43] VITALS: BP 119/47; PULSE 84
[2019-11-09] MEDS ORDERED: Warfarin 2.5 MG Tab PO SCH (12:00)
--- NOTE | 2019-11-12 08:21 | DISCH ---
ADMISSION DIAGNOSES: 1. Congestive heart failure. 2. Weakness. 3. Chronic anticoagulation with supratherapeutic INR. DISCHARGE DIAGNOSIS: 1. CONGESTIVE HEART FAILURE, IMPROVED. 2. WEAKNESS. 3. PANCYTOPENIA. 4. DEMENTIA. 5. SUPRATHERAPEUTIC INR, RESOLVED. 6. STATUS POST AORTIC VALVE REPLACEMENT. HISTORY: Melina was admitted from the emergency room after being brought in by ambulance after her family found her lethargic in her house, were concerned about possible infection. Mak Rajput PA-C, evaluated her, tested her for influenza and COVID, both negative. Laboratories were relatively unremarkable other than pancytopenia. She did have peripheral edema and changes in CHF on her chest x-ray, and she was admitted for weakness, heart failure, and supratherapeutic INR. HOSPITAL COURSE: The patient did well with IV diuresis on the first day. We put her back on an oral dose of Lasix, and she has done well. She has had no fluid accumulation. Her saturations remained stable. Repeat echocardiogram has been accomplished, and results are pending. She does have dementia with prior CVAs in the past. An MRI of the head is being done prior to her discharge from acute care, but her mental status at this point remained stable. Peripheral smear has been ordered for her pancytopenia, and results are pending. B12, folate, and thyroid studies were all negative. At this time, she is unable to go home, although she is clinically stable. We are going to put her in swing bed for physical therapy and strengthening, and she is set to be placed at [facility] on Tuesday. Her INR is back into the actually now subtherapeutic range, and she will have resumption of her Coumadin at her prior dose, and we will monitor her next INR on Tuesday prior to discharge. COMPLICATIONS: During her stay, none. CONSULTATIONS: PT. PROCEDURES: 1. MRI of the brain. 2. Echocardiogram. DISPOSITION: Discharged to swing bed. SAUL /[id number]
== END 2019-11-09 10:26 | disposition swing bed (61) | DRG 292 ==
LOC: CC.ED 15:16 → CC.MS 17:22 → UNDOADMIN 17:22 → CC.MS 17:24 → OBSVTOIN 19:52 → UNDOADMOB 19:52 → INTOOBSV 19:52 → CC.MS 19:52
PROVIDERS: ADMIT Physician Assistant Medical; ATTEND Family Medicine
PROC: 8E0ZXY6 Isolation (ICD-10-PCS; principal; 2019-11-06)
DX: I11.0 Hypertensive heart disease with heart failure (principal); D61.818 Other pancytopenia; I50.33 Acute on chronic diastolic (congestive) heart failure; R53.1 Weakness; H54.7 Unspecified visual loss; H91.90 Unspecified hearing loss, unspecified ear; E78.00 Pure hypercholesterolemia, unspecified; K21.9 Gastro-esophageal reflux disease without esophagitis; R32 Unspecified urinary incontinence; M19.90 Unspecified osteoarthritis, unspecified site; G89.29 Other chronic pain; M54.9 Dorsalgia, unspecified; F03.90 Unspecified dementia, unspecified severity, without behavioral disturbance, psychotic disturbance, mood disturbance, and anxiety; F32.9 Major depressive disorder, single episode, unspecified; Z98.49 Cataract extraction status, unspecified eye; Z95.2 Presence of prosthetic heart valve; Z88.1 Allergy status to other antibiotic agents; Z88.5 Allergy status to narcotic agent; Z88.8 Allergy status to other drugs, medicaments and biological substances; Z79.01 Long term (current) use of anticoagulants; Z86.73 Personal history of transient ischemic attack (TIA), and cerebral infarction without residual deficits; Z79.02 Long term (current) use of antithrombotics/antiplatelets; Z79.899 Other long term (current) drug therapy
CPT/HCPCS: 36415; 70551; 71046; 80048; 80053; 81001; 82607; 82746; 83605; 83880; 84145; 85025; 85046; 85610; 86140; 87804; 93306; 97161-GP; 99285-25; A9270-GY; J1940; U0002

== ENCOUNTER 2019-11-09 10:29 | Inpatient (IN) | payer MEDICARE, OTHER ==
[2019-11-09] MEDS ORDERED: Acetaminophen 325 MG Tab PO PRN (11:18)
[2019-11-09] MEDS ORDERED: Docusate Sodium 100 MG Cap PO PRN ×2 (11:18→11:19)
[2019-11-09] MEDS ORDERED: Meclizine 12.5 MG Tab PO PRN (11:19)
[2019-11-09] MEDS: Warfarin 2.5 MG Tab PO SCH (11:55)
[2019-11-09] MEDS: Sertraline 25 MG Tab PO SCH (20:02)
[2019-11-10] MEDS: Pantoprazole 40 MG Tab.CR PO SCH (06:08)
[2019-11-10] MEDS: Gabapentin 100 MG Cap PO SCH (07:58)
[2019-11-10] MEDS: amLODIPine 2.5 MG Tab PO SCH (07:58)
[2019-11-10] MEDS: Lisinopril 5 MG Tab PO SCH (07:58)
[2019-11-10] MEDS: Clopidogrel 75 MG Tab PO SCH (07:58)
[2019-11-10] MEDS: Metoprolol Succinate 25 MG Tab.ER PO SCH (07:59)
[2019-11-10] MEDS: Furosemide 20 MG Tab PO SCH (07:59)
[2019-11-10] MEDS: Warfarin 2.5 MG Tab PO SCH (13:16)
[2019-11-10] MEDS: Sertraline 25 MG Tab PO SCH (19:58)
[2019-11-11] MEDS: Pantoprazole 40 MG Tab.CR PO SCH (06:18)
[2019-11-11] MEDS: Furosemide 20 MG Tab PO SCH (07:26)
[2019-11-11] MEDS: Gabapentin 100 MG Cap PO SCH (07:26)
[2019-11-11] MEDS: Metoprolol Succinate 25 MG Tab.ER PO SCH (07:26)
[2019-11-11] MEDS: Clopidogrel 75 MG Tab PO SCH (07:26)
[2019-11-11] MEDS: amLODIPine 2.5 MG Tab PO SCH (07:26)
[2019-11-11] MEDS: Lisinopril 5 MG Tab PO SCH (07:27)
[2019-11-11] MEDS: Warfarin 2.5 MG Tab PO SCH (12:01)
[2019-11-11] MEDS: Sertraline 25 MG Tab PO SCH (19:36)
--- NOTE | 2019-11-11 22:15 | PCM.PN ---
- General Info Date of Service: 11/11/19 Functional Status: Reports: Pain Controlled, Tolerating Diet, Ambulating - Review of Systems General: Reports: No Symptoms HEENT: Reports: No Symptoms Pulmonary: Reports: No Symptoms. Denies: Shortness of Breath Cardiovascular: Reports: No Symptoms. Denies: Chest Pain, Palpitations, Dyspnea on Exertion, Orthopnea, PND, Edema, Lightheadedness Gastrointestinal: Reports: No Symptoms Genitourinary: Reports: No Symptoms Musculoskeletal: Reports: No Symptoms Skin: Reports: No Symptoms Neurological: Reports: No Symptoms Psychiatric: Reports: No Symptoms - Patient Data Vitals - Most Recent: Last Vital Signs Temp 98.9 F 11/11/19 16:00 Pulse 76 11/11/19 16:00 Resp 20 11/11/19 16:00 BP 106/42 L 11/11/19 16:00 Pulse Ox 96 11/11/19 16:00 Weight - Most Recent: 163 lb 4.8 oz Lab Results Last 24 Hours: Laboratory Results - last 24 hr 11/11/19 Range/Units 07:10 PT 15.7 H (9.7-12.3) SEC INR 1.56 H (0.92-1.18) Med Orders - Current: Current Medications Acetaminophen (Tylenol) 650 mg PO Q4H PRN PRN Reason: analgesia/fever Last Admin: 11/10/19 07:59 Dose: 650 mg Amlodipine Besylate (Norvasc) 2.5 mg PO DAILY [facility] Last Admin: 11/11/19 07:26 Dose: 2.5 mg Clopidogrel Bisulfate (Plavix) 75 mg PO DAILY [facility] Last Admin: 11/11/19 07:26 Dose: 75 mg Docusate Sodium (Colace) 100 mg PO BID PRN PRN Reason: Constipation Furosemide (Lasix) 20 mg PO DAILY [facility] Last Admin: 11/11/19 07:26 Dose: 20 mg Gabapentin (Neurontin) 100 mg PO DAILY [facility] Last Admin: 11/11/19 07:26 Dose: 100 mg Lisinopril (Prinivil) 5 mg PO DAILY [facility] Last Admin: 11/11/19 07:27 Dose: 5 mg Meclizine HCl (Antivert) 25 mg PO Q8H PRN PRN Reason: Dizziness Metoprolol Succinate (Toprol Xl) 50 mg PO DAILY [facility] Last Admin: 11/11/19 07:26 Dose: 50 mg Rosuvastatin Calcium ([Crestor] 5 Mg Tab) 0 mg PO BEDTIME [facility] Last Admin: 11/11/19 19:39 Dose: 5 mg Pantoprazole Sodium (Protonix) 40 mg PO ACBREAKFAST [facility] Last Admin: 11/11/19 06:18 Dose: 40 mg Sertraline HCl (Zoloft) 50 mg PO BEDTIME [facility] Last Admin: 11/11/19 19:36 Dose: 50 mg Warfarin Sodium (Coumadin) 2.5 mg PO DAILY@1200 [facility] Last Admin: 11/11/19 12:01 Dose: 2.5 mg Warfarin Sodium (Coumadin) 1 mg PO DAILY@1200 [facility] Discontinued Medications Docusate Sodium (Colace) 100 mg PO DAILY PRN PRN Reason: Constipation - Exam General: Alert, Oriented, Cooperative, No Acute Distress Neck: Supple, Trachea Midline, No JVD Lungs: Clear to Auscultation, Normal Respiratory Effort, Decreased Breath Sounds (RLL) Cardiovascular: Regular Rate, Regular Rhythm, Murmurs Back Exam: Normal Inspection, Full Range of Motion Extremities: Normal Inspection, Normal Range of Motion, Non-Tender, No Pedal Edema, Normal Capillary Refill Peripheral Pulses: 2+: Radial (L), Radial (R), Posterior Tibial (L), Posterior Tibial (R) Skin: Warm, Dry, Intact Psy/Mental Status: Alert, Normal Affect, Normal Mood Sepsis Event Note - Evaluation Sepsis Screening Result: No Definite Risk - Focused Exam Vital Signs: Vital Signs Temp Pulse Resp BP Pulse Ox 11/11/19 16:00 98.9 F 76 20 106/42 L 96 Date Exam was Performed: 11/11/19 Time Exam was Performed: 22:15 - Problem List Review Problem List Initiated/Reviewed/Updated: Yes - My Orders Last 24 Hours: My Active Orders 11/11/19 21:59 INR,PT,PROTHROMBIN TIME [COAG] Routine 11/12/19 12:00 Warfarin [Coumadin] 1 mg PO DAILY@1200 - Plan Plan:: 11/11/2019 2200 I was told by ANISH Delacruz that the patient is having some short pauses cardiac. The patient has no symptoms. She reports she is feeling good and feels like she could even be discharged tonight. She got up and walked to the bathroom without issue with walker. Patient reports she did not have any dizziness or difficulty. She is alert and oriented. Denies chest pain or shortness of breath. I will order an EKG for the morning. PCP will see patient tomorrow. Her INR has been 1.56, so I did add another 1mg Coumadin daily to start tomorrow for a total of 3.5mg daily. INR recheck tomorrow as well.
[2019-11-12 00:22] VITALS: PULSE 66
[2019-11-12] MEDS: Pantoprazole 40 MG Tab.CR PO SCH (06:20)
[2019-11-12] MEDS: amLODIPine 2.5 MG Tab PO SCH (07:39)
[2019-11-12] MEDS: Clopidogrel 75 MG Tab PO SCH (07:39)
[2019-11-12 07:40] VITALS: BP 115/67
[2019-11-12] MEDS: Gabapentin 100 MG Cap PO SCH (07:40)
[2019-11-12] MEDS: Lisinopril 5 MG Tab PO SCH (07:40)
[2019-11-12] MEDS: Furosemide 20 MG Tab PO SCH (07:40)
[2019-11-12] MEDS: Metoprolol Succinate 25 MG Tab.ER PO SCH (07:40)
--- NOTE | 2019-11-12 13:31 | DISCH ---
REASON FOR HOSPITALIZATION: 1. Weakness, improving. 2. Congestive heart failure, improved. 3. Dementia. 4. Pancytopenia. 5. History of aortic valve replacement. 6. History of prior cerebrovascular accident. DISCHARGE DIAGNOSIS: 1. WEAKNESS, IMPROVING. 2. CONGESTIVE HEART FAILURE, IMPROVED. 3. DEMENTIA. 4. PANCYTOPENIA. 5. HISTORY OF AORTIC VALVE REPLACEMENT. 6. HISTORY OF PRIOR CEREBROVASCULAR ACCIDENT. HISTORY: The patient presented to the ER and ultimately admitted to Acute Care for weakness. Family had inability to care for her at home. She had some signs of mild CHF, was confused and weak, and she was managed appropriately in Acute Care, found to be in a slight heart failure, diuresed easily over a 24-hour period, and for the most part, she was just getting some PT and monitoring. She was found to have pancytopenia and workup is being entertained. At the end of her Acute Care stay, she was unable to go home on her own. We are planning on discharge to long-term care and she was put in swing bed for further strengthening. SWING BED COURSE: The patient was stable while here for the most part. She never had any issues. She did have a supratherapeutic INR on admission to Acute Care. Her Coumadin was being held. She is a little low now. We have slightly increased her dose and we will continue to monitor INRs through the home. She remains on all of her prior medications, the only change being low dose of Lasix daily. She did have an MRI due to her weakness and occasional confusion. She has known dementia. The MRI showed stability compared to prior from 2 years ago. She had an unremarkable swing bed course. She is being transferred to [facility]. Orders are filled out. COMPLICATIONS: None. CONSULTATIONS: PT. DISPOSITION: Discharge to [facility]. CARMELO/TAD /[id number]
== END 2019-11-12 10:20 | DRG 948 ==
LOC: CC.MS 10:29 → UNDOADMIN 10:29 → CC.MS 11:18
PROVIDERS: ADMIT Family Medicine; ATTEND Family Medicine
DX: R53.1 Weakness (principal); D61.818 Other pancytopenia; I50.9 Heart failure, unspecified; F03.90 Unspecified dementia, unspecified severity, without behavioral disturbance, psychotic disturbance, mood disturbance, and anxiety; R79.1 Abnormal coagulation profile; Z79.01 Long term (current) use of anticoagulants; Z95.2 Presence of prosthetic heart valve; Z86.73 Personal history of transient ischemic attack (TIA), and cerebral infarction without residual deficits
CPT/HCPCS: 36415; 85610; A9270-GY

== ENCOUNTER 2019-12-12 11:02 | Observation (INO) | payer MEDICARE, OTHER ==
[2019-12-12 11:51] LABS: PTT,PARTIAL THROMBOPLSTIN TIME 55.5 SEC (23.2-32.3)
[2019-12-12 12:09] LABS: CHLORIDE,CL 108 mEq/L (98-106); SODIUM,NA 144 mEq/L (136-145)
--- NOTE | 2019-12-12 12:49 | EDM.PDOC ---
ED HPI GENERAL MEDICAL PROBLEM - General Chief Complaint: Neuro Symptoms/Deficits Stated Complaint: possible CVA Time Seen by Provider: 12/12/19 11:40 Source of Information: Reports: Shelter Records, RN History Limitations: Reports: Altered Mental Status - History of Present Illness INITIAL COMMENTS - FREE TEXT/NARRATIVE: Jo-Ann is a 74 yo female who was initially brought to the clinic with concerns of bleeding from her mouth. Clinic staff was concerned of a stroke and sent her to the ED. [facility] staff notes state patient has been more lethargic and confused. She was recently hospitalized with concerns of upper respiratory a few weeks ago. Nursing staff had noticed needing more assistance with ambulation and cares this last week. She was found this morning in bed with bright red blood on her lips. Staff was unable to get resident to open her mouth to assess where the bleeding was coming from. She does have a strong history of dementia as well, which has limited cooperation. Vital signs this morning were stable. She has no known history of seizures. Does have prior history of stroke. - Related Data Allergies Allergy/AdvReac Type Severity Reaction Status Date / Time ciprofloxacin [From Cipro] Allergy Cannot Verified 12/12/19 11:38 Remember ciprofloxacin HCl Allergy Cannot Verified 12/12/19 11:38 [From Cipro] Remember morphine Allergy Cannot Verified 12/12/19 11:38 Remember simvastatin [From Zocor] Allergy Cannot Verified 12/12/19 11:38 Remember Home Meds: Home Meds Gabapentin 100 mg PO DAILY 03/03/14 [History] Metoprolol Succinate [Toprol XL 50mg] 50 mg PO DAILY 03/03/14 [History] Sertraline [Zoloft] 50 mg PO BEDTIME 03/03/14 [History] Lisinopril 5 mg PO DAILY 08/29/17 [History] amLODIPine Besylate [Norvasc] 2.5 mg PO DAILY 08/29/17 [History] Clopidogrel Bisulfate [Clopidogrel] 75 mg PO DAILY 04/25/18 [History] Pantoprazole Sodium 40 mg PO DAILY 04/25/18 [History] Furosemide [Lasix] 20 mg PO DAILY tablet 11/09/19 [Rx] Acetaminophen [Tylenol] 650 mg PO Q4H PRN 12/12/19 [History] Acetaminophen [Tylenol] 650 mg PO TID 12/12/19 [History] Docusate Sodium [Colace] 100 mg PO BID 12/12/19 [History] Warfarin [Coumadin] 4 mg PO DAILY 12/12/19 [History] Past Medical History HEENT 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: Cataract, Hard of Hearing, Impaired Vision Cardiovascular 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: Heart Valve Replacement, High Cholesterol, Hypertension Gastrointestinal 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: GERD Genitourinary 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: Urinary Incontinence [employer] 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: Musculoskeletal 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: Arthritis, Back Pain, Chronic Neurological 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: Headaches, Chronic Psychiatric 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: Depression - Past Surgical History HEENT Surgical 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: Cataract Surgery Cardiovascular Surgical 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: Valve Replacement GI Surgical 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: Colonoscopy, EGD Musculoskeletal Surgical 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: Other (See Below) Other Musculoskeletal Surgeries/Procedures:: Second toe removed from each foot Social & Family History - Family History Family Medical History: Noncontributory - Caffeine Use Caffeine Use: Reports: Coffee, Soda ED ROS GENERAL - Review of Systems Review Of Systems: Unable To Obtain Reason Not Obtained: dementia, altered mental status ED EXAM, NEURO - Physical Exam Exam: See Below Exam Limited By: Altered Mental Status General Appearance: No Apparent Distress, Lethargic, Obtunded Eye Exam: Bilateral Eye: EOMI, PERRL Nose: Normal Inspection, Normal Mucosa, No Blood Throat/Mouth: Other (small laceration/abrasion to lower lip. No intraoral lacerations or current bleeding. ) Head Exam: Atraumatic, Normocephalic. No: Facial Swelling, Facial Tenderness Neck: Normal Inspection, Supple. No: Tender Midline Respiratory/Chest: No Respiratory Distress, Lungs Clear, Normal Breath Sounds, No Accessory Muscle Use Cardiovascular: Regular Rate, Rhythm, Systolic Murmur GI/Abdominal: Normal Bowel Sounds, Soft, Non-Tender, No Organomegaly, No Distention Neurological: Alert (Melina is arousable upon calling her name. Unable to ge). No : Normal Mood/Affect, Oriented x 3 Extremities: Normal Inspection, Non-Tender, No Pedal Edema Psychiatric: Flat Affect Skin Exam: No: Ecchymosis, Increased Warmth EKG INTERPRETATION EKG Date: 12/12/19 Rhythm: NSR Comparison: NA - No Prior EKG Course - Vital Signs Last Recorded V/S: Last Vital Signs Temp 98.0 F 12/12/19 11:05 Pulse 72 05/06/20 11:05 Resp 20 12/12/19 11:05 BP 114/38 L 12/12/19 11:05 Pulse Ox 94 L 12/12/19 11:05 - Orders/Labs/Meds Orders: Active Orders 24 hr Category Date Time Status Neurovascular Check [RC] Q1H Care 12/12/19 12:20 Active Vital Signs [RC] Q1H Care 12/12/19 12:28 Active Head wo Cont [CT] Stat Exams 12/12/19 11:13 Taken MISC TEST Routine Lab 12/12/19 12:54 Received PROLACTIN [REF] Routine Lab 12/12/19 13:35 Received LORazepam [Ativan] Med 12/12/19 14:14 Ordered 1 mg IVPUSH Q8H PRN Sodium Chloride 0.9% [Normal Saline] 1,000 ml Med 12/12/19 13:00 Active IV ASDIRECTED Medication Orders Sodium Chloride (Normal Saline) 1,000 mls @ 75 mls/hr IV ASDIRECTED RAGHU Last Admin: 12/12/19 13:18 Dose: 75 mls/hr Labs: Laboratory Tests 12/12/19 12/12/19 12/12/19 Range/Units 11:13 11:13 11:30 WBC (5.0-10.0) 10^3/uL RBC (4.00-5.50) 10^6/uL Hgb (12.0-16.0) g/dL Hct (37.0-47.0) % MCV (82.0-94.0) fL MCH (27.0-32.0) pg MCHC (33.0-38.0) g/dL RDW Coeff of Lakhwinder (11.0-15.0) % Plt Count (150-400) 10^3/uL Neut % (Auto) (35-85) % Lymph % (Auto) (10-55) % [place] % (Auto) (0-16) % Eos % (Auto) (0-5) % Baso % (Auto) (0-3) % Neut # (Auto) (1.80-7.00) 10^3/uL Lymph # (Auto) (1.00-4.80) 10^3/uL [place] # (Auto) (0.00-0.80) 10^3/uL Eos # (Auto) (0.00-0.45) 10^3/uL Baso # (Auto) 10^3/uL PT 74.3 H (9.7-12.3) SEC INR 7.51 H* (0.92-1.18) APTT 55.5 H (23.2-32.3) SEC Sodium 144 (136-145) mEq/L Potassium 4.4 (3.5-5.0) mEq/L Chloride 108 H (98-106) mEq/L Carbon Dioxide 28 (21-32) mmol/L BUN 34 H (7-18) mg/dL Creatinine 1.9 H (0.6-1.0) mg/dL Est Cr Clr Drug Dosing 21.16 mL/min Estimated GFR (MDRD) 26 L (>=60) mL/min Glucose 128 H (75-99) mg/dL Calcium 9.2 (8.4-10.1) mg/dL Creatine Kinase 1400 H (21-215) U/L Troponin I < 0.017 (0.00-0.06) ng/mL Urine Color Yellow (YELLOW) Urine Appearance Clear (CLEAR) Urine pH 7.0 (4.5-8.0) Ur Specific [place] 1.020 (1.003-1.020) Urine Protein Negative (NEGATIVE) mg/dL Urine Glucose (UA) Negative (NEGATIVE) mg/dL Urine Ketones Negative (NEGATIVE) mg/dL Urine Occult Blood Large H (NEGATIVE) Urine Nitrite Negative (NEGATIVE) Urine Bilirubin Negative (NEGATIVE) Urine Urobilinogen 0.2 (0.2-1.0) EU/dL Ur Leukocyte Esterase Negative (NEGATIVE) Urine RBC 10-20 H (0-5) /HPF Urine WBC Not seen (0-5) /HPF Ur Epithelial Cells Moderate H (NOT SEEN) /HPF Urine Bacteria Few H (NOT SEEN) /HPF 05//20 Range/Units 11:30 WBC 6.4 (5.0-10.0) 10^3/uL RBC 3.28 L (4.00-5.50) 10^6/uL Hgb 9.8 L (12.0-16.0) g/dL Hct 30.7 L (37.0-47.0) % MCV 93.6 (82.0-94.0) fL MCH 29.9 (27.0-32.0) pg MCHC 31.9 L (33.0-38.0) g/dL RDW Coeff of Lakhwinder 15.2 H (11.0-15.0) % Plt Count 153 (150-400) 10^3/uL Neut % (Auto) 60.0 (35-85) % Lymph % (Auto) 28.5 (10-55) % [place] % (Auto) 10.1 (0-16) % Eos % (Auto) 1.1 (0-5) % Baso % (Auto) 0.3 (0-3) % Neut # (Auto) 3.84 (1.80-7.00) 10^3/uL Lymph # (Auto) 1.83 (1.00-4.80) 10^3/uL [place] # (Auto) 0.65 (0.00-0.80) 10^3/uL Eos # (Auto) 0.07 (0.00-0.45) 10^3/uL Baso # (Auto) 0.02 10^3/uL PT (9.7-12.3) SEC INR (0.92-1.18) APTT (23.2-32.3) SEC Sodium (136-145) mEq/L Potassium (3.5-5.0) mEq/L Chloride (98-106) mEq/L Carbon Dioxide (21-32) mmol/L BUN (7-18) mg/dL Creatinine (0.6-1.0) mg/dL Est Cr Clr Drug Dosing mL/min Estimated GFR (MDRD) (>=60) mL/min Glucose (75-99) mg/dL Calcium (8.4-10.1) mg/dL Creatine Kinase (21-215) U/L Troponin I (0.00-0.06) ng/mL Urine Color (YELLOW) Urine Appearance (CLEAR) Urine pH (4.5-8.0) Ur Specific [place] (1.003-1.020) Urine Protein (NEGATIVE) mg/dL Urine Glucose (UA) (NEGATIVE) mg/dL Urine Ketones (NEGATIVE) mg/dL Urine Occult Blood (NEGATIVE) Urine Nitrite (NEGATIVE) Urine Bilirubin (NEGATIVE) Urine Urobilinogen (0.2-1.0) EU/dL Ur Leukocyte Esterase (NEGATIVE) Urine RBC (0-5) /HPF Urine WBC (0-5) /HPF Ur Epithelial Cells (NOT SEEN) /HPF Urine Bacteria (NOT SEEN) /HPF Meds: Medications Generic Name Dose Route Start Last Admin Trade Name Freq PRN Reason Stop Dose Admin Sodium Chloride 1,000 mls @ 75 mls/hr 12/12/19 13:00 12/12/19 13:18 Normal Saline IV 75 mls/hr ASDIRECTED RAGHU Administration Discontinued Medications Generic Name Dose Route Start Last Admin Trade Name Freq PRN Reason Stop Dose Admin Phytonadione 5 mg 12/12/19 12:15 12/12/19 12:31 Aquamephyton SUBCUT 12/12/19 12:16 Not Given ONETIME ONE Phytonadione 2.5 mg 12/12/19 12:21 12/12/19 12:29 Aquamephyton SUBCUT 12/12/19 12:22 2.5 mg ONETIME ONE Administration - Radiology Interpretation Free Text/Narrative:: CT is negative for any hemorrhagic bleeds. No acute findings. Departure - Departure Time of Disposition: 14:30 Disposition: Refer to Observation Clinical Impression: Altered mental status, Anticoagulation excessive, Elevated CK - Discharge Information Referrals: Usama Ellsworth MD [Primary Care Provider] - Forms: ED Department Discharge Sepsis Event Note - Evaluation Sepsis Screening Result: No Definite Risk - Focused Exam Vital Signs: Vital Signs Temp Pulse Resp BP Pulse Ox 12/12/19 11:05 98.0 F 72 20 114/38 L 94 L Date Exam was Performed: 12/12/19 Time Exam was Performed: 14:15 - Problem List & Annotations (1) Altered mental status SNOMED Code(s): 834141897 Code(s): R41.82 - ALTERED MENTAL STATUS, UNSPECIFIED Status: Acute Current Visit: Yes Qualifiers: Altered mental status type: transient alteration of awareness Qualified Code(s): R40.4 - Transient alteration of awareness (2) Anticoagulation excessive SNOMED Code(s): 51475835, 832184996 Code(s): RXN2759 - Status: Acute Current Visit: Yes (3) Elevated CK SNOMED Code(s): 192957672 Code(s): R74.8 - ABNORMAL LEVELS OF OTHER SERUM ENZYMES Status: Acute Current Visit: Yes - My Orders Last 24 Hours: My Active Orders 12/12/19 11:13 Head wo Cont [CT] Stat 12/12/19 12:20 Neurovascular Check [RC] Q1H 12/12/19 12:28 Vital Signs [RC] Q1H 12/12/19 12:54 MISC TEST Routine 12/12/19 13:00 Sodium Chloride 0.9% [Normal Saline] 1,000 ml IV ASDIRECTED 12/12/19 13:35 PROLACTIN [REF] Routine 12/12/19 14:14 LORazepam [Ativan] 1 mg IVPUSH Q8H PRN - Assessment/Plan Admission H&P: Please use this note as an admission H&P Last 24 Hours: My Active Orders 12/12/19 11:13 Head wo Cont [CT] Stat 12/12/19 12:20 Neurovascular Check [RC] Q1H 12/12/19 12:28 Vital Signs [RC] Q1H 12/12/19 12:54 MISC TEST Routine 12/12/19 13:00 Sodium Chloride 0.9% [Normal Saline] 1,000 ml IV ASDIRECTED 12/12/19 13:35 PROLACTIN [REF] Routine 12/12/19 14:14 LORazepam [Ativan] 1 mg IVPUSH Q8H PRN Plan: Consulted with Dr. Ellsworth in regards to Melina's condition. Will admit to his services under observation. Will closely monitor. IV fluids for elevated CK level, will get fractionated CK and Prolactin level. Rule out possible prior seizure. We have tried contacting her son via phone multiple times; however, we are unable to get in contact with him. 2.5mg of Vitamin K was given subcutaneously while in ED.
[2019-12-12] MEDS: Sodium Chloride 0.9% 1,000 ML IV SCH (13:18)
[2019-12-12] MEDS ORDERED: LORazepam 2 MG/ML Syringe IVPUSH PRN (14:14)
[2019-12-12] MEDS ORDERED: Acetaminophen 325 MG Tab PO PRN (15:01)
[2019-12-12] MEDS ORDERED: Ondansetron 4 MG/2 ML SDV IVPUSH PRN (15:01)
[2019-12-12] MEDS: SERTRALINE 50 MG PO SCH (19:48)
[2019-12-12] MEDS: Acetaminophen 325 MG Tab PO SCH (19:48)
[2019-12-12] MEDS: Docusate Sodium 100 MG Cap PO SCH (19:48)
[2019-12-13] MEDS: Sodium Chloride 0.9% 1,000 ML IV SCH ×2 (02:23→19:39)
[2019-12-13] MEDS: Pantoprazole 40 MG Tab.CR PO SCH ×2 (06:36→07:45)
[2019-12-13] MEDS: Lisinopril 5 MG Tab PO SCH (07:46)
[2019-12-13] MEDS: amLODIPine 2.5 MG Tab PO SCH (07:46)
[2019-12-13] MEDS: Docusate Sodium 100 MG Cap PO SCH ×2 (07:48→19:51)
[2019-12-13] MEDS: Acetaminophen 325 MG Tab PO SCH ×3 (07:50→19:51)
[2019-12-13] MEDS ORDERED: Furosemide 20 MG Tab PO SCH (08:00)
[2019-12-13] MEDS ORDERED: Gabapentin 100 MG Cap PO SCH (08:00)
[2019-12-13] MEDS ORDERED: METOPROLOL SUCCINATE 50 MG PO SCH (08:00)
--- NOTE | 2019-12-13 11:34 | PN ---
DATE: 12/13/2019 S: Jo-Ann was admitted by Mka Rajput yesterday after being evaluated and seen for increasing confusion. It sounds like over the last 2 weeks she has had a fairly steady decline in cognitive functioning, cares, ability to eat, etc. She was evaluated by Mak, had no focal deficits, but was confused, very dysarthric, had an INR of 7.5 and an elevated creatinine of 1.9. She had no signs of any obvious infection. He did do a CT scan of her head which showed no acute changes. He admitted her for altered mental status. Since that time, the patient has not had any real significant change in her status. She has become a little bit more alert, but minimally so. She is arousable and does speak and answer questions. She has almost sonorous breathing pattern at this time, but her saturations are maintained. She is maintained in sinus rhythm around 80 beats per minute and has had no fevers. O: GENERAL: When I examined her today, she is difficult to arouse, but will open her eyes, look at me, and repeat by name. LUNGS: Her exam shows her to have clear breath sounds. HEART: Her cardiac tones are regular. Aortic valve easily auscultated. ABDOMEN: Appears completely nontender with good bowel sounds. EXTREMITIES: No peripheral edema seen. NEUROLOGIC: I cannot get an adequate neuro exam on her. ASSESSMENT: 1. ALTERED MENTAL STATUS. 2. HISTORY OF CEREBROVASCULAR ACCIDENT. 3. 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 4. HISTORY OF AORTIC VALVE REPLACEMENT. 5. ACUTE ON CHRONIC RENAL FAILURE. 6. PALLIATIVE CARES. 7. MACROCYTIC ANEMIA. P: The patient will be put on palliative cares. We will continue some low rate IV fluids as she is not taking anything in orally. Her INR is down to 4.51 after Mak gave her some vitamin K due to some mouth bleeding yesterday. We will continue to monitor counts. Creatinine is improved with IV fluids down to 1.7. I am going to schedule for an MRI of the head. She has a history of prior cerebellar CVA. I did have a long discussion with family, most notably her son who is her POA and he did desire essentially her to be DNR and comfort cares with no aggressive measures taken at this time. He does not want ongoing diagnostics and appropriate non-heroic measures. CARMELO/MODL /[id number]
[2019-12-13] MEDS: SERTRALINE 50 MG PO SCH (19:51)
[2019-12-14 07:35] VITALS: PULSE 75
[2019-12-14 07:40] VITALS: BP 112/69
[2019-12-14] MEDS: Lisinopril 5 MG Tab PO SCH (07:42)
[2019-12-14] MEDS: amLODIPine 2.5 MG Tab PO SCH (07:42)
[2019-12-14] MEDS: Docusate Sodium 100 MG Cap PO SCH (07:49)
[2019-12-14] MEDS: Acetaminophen 325 MG Tab PO SCH (07:49)
[2019-12-14] MEDS ORDERED: Pantoprazole 40 MG Vial IVPUSH SCH (09:00)
--- NOTE | 2019-12-16 21:04 | PCM.DCSUM1 ---
Discharge Summary - Hospital Course Free Text/Narrative:: Melina is a 74 year old female who initially was brought to the clinic with concerns of bleeding in her mouth. Staff was concerned of a CVA, thus patient was referred over to the ER. Patient has been more lethargic, not eating as well. Seems more confused. Noted to need more assistance with cares over the last week in the [facility]. Was found in her bed at the home with blood in her mouth. On Coumadin, INR high at 7.5 in ER. Patient also noted to have dementia but changes noted more so over the last 2 weeks. History of CVA. No known seizure disorder. Other than high INR, other labs essentially normal. CT scan of head was done, no acute changes noted. Admitted for observation for ongoing neurological evaluation and assistance. Diagnosis: Stroke: No Modified Ferdinand Scale: No Symptoms at All Modified Ferdinand Scale Score: 0 - Discharge Data Discharge Date: 12/14/19 Discharge Disposition: Home, Self-Care 01 Condition: Poor - Referral to Home Health Primary Care Physician: Usama Ellsworth MD - Patient Summary/Data Complications: none Hospital Course: Patient has shown mild improvement in status. Was obtunded on admission and for the first 24 hours, was not responding much per self. Today, patient up in chair. Drinking water per self from cup. Oriented to person and place. MRI done of brain this am, no obvious changes. Labs have remained stable. INR back down to 1.96. Patient does follow commands. Dr. Ellsworth was in contact with CLAUDINE son, who does not want aggressive diagnostics or treatment. Will transfer back to [facility] with usual cares. - Patient Instructions Diet: Usual Diet as Tolerated Activity: As Tolerated - Discharge Plan *PRESCRIPTION DRUG MONITORING PROGRAM REVIEWED*: No *COPY OF PRESCRIPTION DRUG MONITORING REPORT IN PATIENT ZEYAD: No Home Medications: Home Meds Gabapentin 100 mg PO DAILY 03/03/14 [History] Metoprolol Succinate [Toprol XL 50mg] 50 mg PO DAILY 03/03/14 [History] Sertraline [Zoloft] 50 mg PO BEDTIME 03/03/14 [History] Lisinopril 5 mg PO DAILY 08/29/17 [History] amLODIPine Besylate [Norvasc] 2.5 mg PO DAILY 08/29/17 [History] Clopidogrel Bisulfate [Clopidogrel] 75 mg PO DAILY 04/25/18 [History] Pantoprazole Sodium 40 mg PO DAILY 04/25/18 [History] Furosemide [Lasix] 20 mg PO DAILY tablet 11/09/19 [Rx] Acetaminophen [Tylenol] 650 mg PO Q4H PRN 12/12/19 [History] Acetaminophen [Tylenol] 650 mg PO TID 12/12/19 [History] Docusate Sodium [Colace] 100 mg PO BID 12/12/19 [History] Warfarin [Coumadin] 4 mg PO DAILY 12/12/19 [History] Forms: ED Department Discharge Referrals: Usama Ellsworth MD [Primary Care Provider] - (see Dr. Ellsworth on rounds) - Discharge Summary/Plan Comment DC Time >30 min.: No - General Info Date of Service: 12/14/19 Admission Dx/Problem (Free Text: Altered Mental Status Functional Status: Denies: Ambulating - Review of Systems General: Reports: Weakness, Fatigue, Malaise HEENT: Reports: No Symptoms Pulmonary: Denies: Shortness of Breath, Cough - Patient Data Vitals - Most Recent: Last Vital Signs Temp 97.6 F 12/14/19 07:35 Pulse 75 12/14/19 07:35 Resp 18 12/14/19 07:35 BP 112/69 12/14/19 07:42 Pulse Ox 97 12/14/19 07:35 Weight - Most Recent: 150 lb 9.6 oz Med Orders - Current: Current Medications Discontinued Medications Acetaminophen (Tylenol) 650 mg PO Q4H PRN PRN Reason: Pain Acetaminophen (Tylenol) 650 mg PO TID [facility] Last Admin: 12/14/19 07:49 Dose: 650 mg Amlodipine Besylate (Norvasc) 2.5 mg PO DAILY [facility] Last Admin: 12/14/19 07:42 Dose: 2.5 mg Docusate Sodium (Colace) 100 mg PO BID [facility] Last Admin: 12/14/19 07:49 Dose: 100 mg Furosemide (Lasix) 20 mg PO DAILY [facility] Last Admin: 12/13/19 07:41 Dose: 20 mg Gabapentin (Neurontin) 100 mg PO DAILY [facility] Last Admin: 12/13/19 07:42 Dose: 100 mg Sodium Chloride (Normal Saline) 1,000 mls @ 50 mls/hr IV ASDIRECTED [facility] Last Admin: 12/13/19 19:39 Dose: 50 mls/hr Lisinopril (Prinivil) 5 mg PO DAILY [facility] Last Admin: 12/14/19 07:42 Dose: 5 mg Lorazepam (Ativan) 1 mg IVPUSH Q8H PRN PRN Reason: Seizures Metoprolol Succinate [Toprol Xl 50mg] 50 Mg Tab 0 mg PO DAILY [facility] Last Admin: 12/13/19 07:43 Dose: 50 mg Sertraline [Zoloft] (50 Mg Tab) 0 mg PO BEDTIME [facility] Last Admin: 12/13/19 19:51 Dose: Not Given Ondansetron HCl (Zofran) 4 mg IVPUSH Q4H PRN PRN Reason: Nausea/Vomiting Pantoprazole Sodium (Protonix) 40 mg PO ACBREAKFAST [facility] Last Admin: 12/13/19 07:45 Dose: 40 mg Pantoprazole Sodium (Protonix Iv) 40 mg IVPUSH Q24H [facility] Last Admin: 12/14/19 08:01 Dose: 40 mg Phytonadione (Aquamephyton) 5 mg SUBCUT ONETIME ONE Stop: 12/12/19 12:16 Last Admin: 12/12/19 12:31 Dose: Not Given Phytonadione (Aquamephyton) 2.5 mg SUBCUT ONETIME ONE Stop: 12/12/19 12:22 Last Admin: 12/12/19 12:29 Dose: 2.5 mg - Exam General: Reports: Alert, Oriented (person and place) HEENT: Reports: Mucous Membr. Moist/[place] Neck: Reports: Supple Lungs: Reports: Clear to Auscultation, Normal Respiratory Effort Cardiovascular: Reports: Regular Rate, Regular Rhythm GI/Abdominal Exam: Normal Bowel Sounds, Soft, Non-Tender Extremities: Normal Inspection, No Pedal Edema Skin: Reports: Warm, Dry
== END 2019-12-14 12:15 | disposition home or self-care (01) ==
LOC: CC.ED 11:02 → CC.MS 14:16 → UNDOADMOB 14:21
PROVIDERS: ADMIT Physician Assistant Medical; ATTEND Family Medicine
DX: R40.4 Transient alteration of awareness (principal); R74.8 Abnormal levels of other serum enzymes; N17.9 Acute kidney failure, unspecified; Z51.5 Encounter for palliative care; E78.00 Pure hypercholesterolemia, unspecified; F32.9 Major depressive disorder, single episode, unspecified; N18.9 Chronic kidney disease, unspecified; I12.9 Hypertensive chronic kidney disease with stage 1 through stage 4 chronic kidney disease, or unspecified chronic kidney disease; D68.9 Coagulation defect, unspecified; D53.9 Nutritional anemia, unspecified; K21.9 Gastro-esophageal reflux disease without esophagitis; Z88.1 Allergy status to other antibiotic agents; Z88.5 Allergy status to narcotic agent; Z88.8 Allergy status to other drugs, medicaments and biological substances; Z79.899 Other long term (current) drug therapy; Z86.73 Personal history of transient ischemic attack (TIA), and cerebral infarction without residual deficits; Z95.2 Presence of prosthetic heart valve; Z79.01 Long term (current) use of anticoagulants
CPT/HCPCS: 36415; 70450; 70551; 80048; 81001; 82550; 82607; 82746; 84146; 84484; 85025; 85610; 85730; 86140; 93005; 96360; 96361; 96372; 99285-25; A9270-GY; C9113; J3430; J7030

== ENCOUNTER 2020-01-25 06:56 | Emergency (ER) | payer MEDICARE, OTHER ==
--- NOTE | 2020-01-25 07:51 | EDM.PDOC ---
ED HPI GENERAL MEDICAL PROBLEM - General Source of Information: Reports: Patient, Jail Records, RN History Limitations: Reports: No Limitations <Giovana Rajput - Last Filed: 01/25/20 07:45> <Elsy Méndez - Last Filed: 01/25/20 11:52> - General Chief Complaint: Trauma Stated Complaint: EYE Time Seen by Provider: 01/25/20 07:18 - History of Present Illness INITIAL COMMENTS - FREE TEXT/NARRATIVE: Pt fell at the [facility] about 0500 and denied any injury. Later this AM it was noted that she had a subconjunctival hemorrhage on the left eye. She denies any double or blurred vision from the eye. She denies any pain. She denies hitting her head. Does have bruise to the right forearm. Denies any dizziness. (Brianna Rajput) - Related Data Allergies Allergy/AdvReac Type Severity Reaction Status Date / Time ciprofloxacin [From Cipro] Allergy Cannot Verified 01/25/20 07:39 Remember ciprofloxacin HCl Allergy Cannot Verified 01/25/20 07:39 [From Cipro] Remember morphine Allergy Cannot Verified 01/25/20 07:39 Remember simvastatin [From Zocor] Allergy Cannot Verified 01/25/20 07:39 Remember Home Meds: Home Meds Gabapentin 100 mg PO DAILY 03/03/14 [History] Metoprolol Succinate [Toprol XL 50mg] 50 mg PO DAILY 03/03/14 [History] Sertraline [Zoloft] 100 mg PO BEDTIME 03/03/14 [History] Lisinopril 5 mg PO DAILY 08/29/17 [History] amLODIPine Besylate [Norvasc] 2.5 mg PO DAILY 08/29/17 [History] Clopidogrel Bisulfate [Clopidogrel] 75 mg PO DAILY 04/25/18 [History] Pantoprazole Sodium 40 mg PO DAILY 04/25/18 [History] Furosemide [Lasix] 20 mg PO DAILY tablet 11/09/19 [Rx] Acetaminophen [Tylenol] 650 mg PO Q4H PRN 12/12/19 [History] Acetaminophen [Tylenol] 650 mg PO TID 12/12/19 [History] Docusate Sodium [Colace] 100 mg PO BID 12/12/19 [History] Warfarin [Coumadin] 3.5 mg PO DAILY 12/12/19 [History] Past Medical History HEENT 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: Cataract, Hard of Hearing, Impaired Vision Cardiovascular 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: Heart Valve Replacement, High Cholesterol, Hypertension Gastrointestinal 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: GERD Genitourinary 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: Urinary Incontinence 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: Musculoskeletal 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: Arthritis, Back Pain, Chronic Neurological 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: Headaches, Chronic Psychiatric 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: Depression - Past Surgical History HEENT Surgical 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: Cataract Surgery Cardiovascular Surgical 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: Valve Replacement GI Surgical 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: Colonoscopy, EGD Musculoskeletal Surgical 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: Other (See Below) Other Musculoskeletal Surgeries/Procedures:: Second toe removed from each foot <Giovana Rajput Last Filed: 01/25/20 07:45> Social & Family History - Family History Family Medical History: Noncontributory - Caffeine Use Caffeine Use: Reports: Coffee, Soda - Living Situation & Occupation Living situation: Reports: Extended Care Facility <Giovana Rajput Last Filed: 01/25/20 07:45> Review of Systems - Review of Systems Review Of Systems: See Below Constitutional: Reports: No Symptoms Eyes: Reports: Other (left subconjuctival bruising noted and bruising around the left eye. She denies any double or blurred vison from the left.) Ears: Reports: No Symptoms Mouth/Throat: Reports: No Symptoms Respiratory: Reports: No Symptoms Cardiovascular: Reports: No Symptoms GI/Abdominal: Reports: No Symptoms Skin: Reports: Bruising (to the right forear that is new. Has skin tear to the left forearm that is from previous injury.) Neurological: Denies: Confusion, Dizziness, Headache <Giovana Rajput Last Filed: 01/25/20 07:45> ED EXAM, GENERAL - Physical Exam Exam Limited By: No Limitations General Appearance: Alert, WD/WN, No Apparent Distress Eye Exam: Left Eye: Conjunctival Injection (Has subconjunctival hemorrhage to the left eye. Has bruising around the eye with some mild swelling. Gazes are within normal limits. She denies any double or blurred vision.), Bilateral Eye: PERRL Ears: Normal External Exam, Normal Canal Nose: Normal Inspection Throat/Mouth: Normal Inspection, Normal Oropharynx Head: Atraumatic, Normocephalic Neck: Normal Inspection, Supple, Non-Tender, Full Range of Motion Respiratory/Chest: No Respiratory Distress, Lungs Clear, Normal Breath Sounds Cardiovascular: Irregularly Irregular, Other (murmur noted.) GI/Abdominal: Normal Bowel Sounds, Soft, Non-Tender Back Exam: Normal Inspection, Full Range of Motion Extremities: Normal Inspection, Normal Capillary Refill Neurological: Alert, Oriented Skin Exam: Warm, Dry, Intact <Giovana Rajput - Last Filed: 01/25/20 07:45> - Physical Exam Exam: See Below <Elsy Méndez - Last Filed: 01/25/20 11:52> - Physical Exam Free Text/Narrative:: Airway is open breathing is with ease and good air exchange throughout circulation -no bleeding other than the eye as noted in HPI deformity - none exposed to look for injuries. Bruise noted but to the left lower back that looks old with the coloring. small bruise to the left buttock. bruises on arms as noted. No need for IV at this time due to no injury and negative CT scan head. No need for chest and pelvis as she does not have any pain or injury to those areas GCS is 15 on admission (Giovana Rajput) Course <Giovana Rajput - Last Filed: 01/25/20 07:45> <Elsy Méndez Lamberto - Last Filed: 01/25/20 11:52> - Vital Signs Last Recorded V/S: Last Vital Signs Temp 97.8 F 01/25/20 11:06 Pulse 64 01/25/20 11:06 Resp 18 01/25/20 11:06 BP 108/46 L 01/25/20 11:06 Pulse Ox 94 L 01/25/20 07:00 - Orders/Labs/Meds Orders: Active Orders 24 hr Category Date Time Status Communication Order [RC] ROUTINE Care 01/25/20 09:21 Active Head wo Cont [CT] Stat Exams 01/25/20 07:08 Taken IRON & TIBC [REF] Stat Lab 01/25/20 08:32 Received Sodium Chloride 0.9% [Normal Saline] 500 ml Med 01/25/20 08:45 Active IV ASDIRECTED Transfuse PRBC [Transfuse Red Blood Cells] [COMM] Stat Oth 01/25/20 08:43 Ordered Medication Orders Sodium Chloride (Normal Saline) 500 mls @ 100 mls/hr IV ASDIRECTED RAGHU Last Admin: 01/25/20 09:12 Dose: 100 mls/hr Documented by: AJCK Labs: Laboratory Tests 01/25/20 01/25/20 01/25/20 Range/Units 07:30 07:30 07:30 WBC 5.5 (5.0-10.0) 10^3/uL RBC 2.67 L (4.00-5.50) 10^6/uL Hgb 7.4 L* (12.0-16.0) g/dL Hct 24.8 L (37.0-47.0) % MCV 92.9 (82.0-94.0) fL MCH 27.7 (27.0-32.0) pg MCHC 29.8 L (33.0-38.0) g/dL RDW Coeff of Lakhwinder 15.9 H (11.0-15.0) % Plt Count 131 L (150-400) 10^3/uL Neut % (Auto) 48.6 (35-85) % Lymph % (Auto) 33.0 (10-55) % [place] % (Auto) 13.6 (0-16) % Eos % (Auto) 4.4 (0-5) % Baso % (Auto) 0.4 (0-3) % Neut # (Auto) 2.65 (1.80-7.00) 10^3/uL Lymph # (Auto) 1.80 (1.00-4.80) 10^3/uL [place] # (Auto) 0.74 (0.00-0.80) 10^3/uL Eos # (Auto) 0.24 (0.00-0.45) 10^3/uL Baso # (Auto) 0.02 10^3/uL PT 34.8 H (9.7-12.3) SEC INR 3.49 H (0.92-1.18) APTT 39.9 H (23.2-32.3) SEC Sodium 141 (136-145) mEq/L Potassium 4.6 (3.5-5.0) mEq/L Chloride 106 (98-106) mEq/L Carbon Dioxide 26 (21-32) mmol/L BUN 25 H (7-18) mg/dL Creatinine 1.8 H (0.6-1.0) mg/dL Est Cr Clr Drug Dosing 21.99 mL/min Estimated GFR (MDRD) 27 L (>=60) mL/min Glucose 98 (75-99) mg/dL Calcium 8.9 (8.4-10.1) mg/dL Total Bilirubin 0.9 (0.0-1.0) mg/dL AST 35 (15-37) U/L ALT 19 (12-78) U/L Alkaline Phosphatase 113 (46-116) U/L Total Protein 7.0 (6.4-8.2) g/dL Albumin 2.8 L (3.4-5.0) g/dL Vitamin B12 (193-986) PG/ML Folate (>8.6) NG/ML TSH, Ultra Sensitive (0.36-5.60) uIU/mL Blood Type Gel Antibody Screen Crossmatch 01/25/20 01/25/20 Range/Units 08:32 08:32 WBC (5.0-10.0) 10^3/uL RBC (4.00-5.50) 10^6/uL Hgb (12.0-16.0) g/dL Hct (37.0-47.0) % MCV (82.0-94.0) fL MCH (27.0-32.0) pg MCHC (33.0-38.0) g/dL RDW Coeff of Lakhwinder (11.0-15.0) % Plt Count (150-400) 10^3/uL Neut % (Auto) (35-85) % Lymph % (Auto) (10-55) % [place] % (Auto) (0-16) % Eos % (Auto) (0-5) % Baso % (Auto) (0-3) % Neut # (Auto) (1.80-7.00) 10^3/uL Lymph # (Auto) (1.00-4.80) 10^3/uL [place] # (Auto) (0.00-0.80) 10^3/uL Eos # (Auto) (0.00-0.45) 10^3/uL Baso # (Auto) 10^3/uL PT (9.7-12.3) SEC INR (0.92-1.18) APTT (23.2-32.3) SEC Sodium (136-145) mEq/L Potassium (3.5-5.0) mEq/L Chloride (98-106) mEq/L Carbon Dioxide (21-32) mmol/L BUN (7-18) mg/dL Creatinine (0.6-1.0) mg/dL Est Cr Clr Drug Dosing mL/min Estimated GFR (MDRD) (>=60) mL/min Glucose (75-99) mg/dL Calcium (8.4-10.1) mg/dL Total Bilirubin (0.0-1.0) mg/dL AST (15-37) U/L ALT (12-78) U/L Alkaline Phosphatase (46-116) U/L Total Protein (6.4-8.2) g/dL Albumin (3.4-5.0) g/dL Vitamin B12 1002 H (193-986) PG/ML Folate 18.3 (>8.6) NG/ML TSH, Ultra Sensitive 0.75 (0.36-5.60) uIU/mL Blood Type O POSITIVE Gel Antibody Screen Negative Crossmatch See Detail Meds: Medications Generic Name Dose Route Start Last Admin Trade Name Freq PRN Reason Stop Dose Admin Sodium Chloride 500 mls @ 100 mls/hr 01/25/20 08:45 01/25/20 09:12 Normal Saline IV 100 mls/hr ASDIRECTED RAGHU Administration - Re-Assessments/Exams Free Text/Narrative Re-Assessment/Exam: 01/25/20 08:01 CT scan report reviewed and no bleeding noted. GCS remains 15 01/25/20 08:17 reviewed lab results with Dr Ellsworth. Will give 1 unit of PRBC today for hgb of 7.4 and additional labs drawn. Pt voices understanding of this. (Giovana Rajput) 01/25/20 11:51 1 Unit PRBCs transfused without issue. Patient will be discharged back to [facility]. Will have stools for occult blood x3 at [facility]. Is advised to hold Coumadin x 3 days. Recheck INR Tuesday. (Elsy Méndez) Departure <Giovana Rajput - Last Filed: 01/25/20 07:45> - Departure Time of Disposition: 11:49 - Discharge Information *PRESCRIPTION DRUG MONITORING PROGRAM REVIEWED*: Not Applicable *COPY OF PRESCRIPTION DRUG MONITORING REPORT IN PATIENT ZEYAD: Not Applicable <Elsy Méndez - Last Filed: 01/25/20 11:52> - Departure Disposition: Home, Self-Care 01 Clinical Impression: Fall at intermediate Qualifiers: Encounter type: initial encounter Qualified Code(s): W19.XXXA - Unspecified fall, initial encounter Subconjunctival bleed Qualifiers: Laterality: left Qualified Code(s): H11.32 - Conjunctival hemorrhage, left eye Anemia Qualifiers: Anemia type: iron deficiency Iron deficiency anemia type: unspecified iron deficiency Qualified Code(s): D50.9 - Iron deficiency anemia, unspecified - Discharge Information Instructions: Anemia, Subconjunctival Hemorrhage Forms: ED Department Discharge Additional Instructions: Stools for occult blood times 3 at the intermediate with results to Dr. Ellsworth hold Coumadin and recheck INR on Tuesday with results to Dr. Ellsworth Sepsis Event Note (ED) - Evaluation Sepsis Screening Result: No Definite Risk <Giovana Rajput Lamberto - Last Filed: 01/25/20 07:45> - Focused Exam Vital Signs: Vital Signs Temp Temp Pulse Resp BP Pulse Ox 01/25/20 11:06 97.8 F 64 18 108/46 L 01/25/20 10:06 98.0 F 64 18 110/46 L 01/25/20 09:51 97.9 F 67 18 108/40 L 01/25/20 09:37 98.1 F 60 18 111/47 L 01/25/20 07:00 98.4 F 67 16 139/59 L 94 L
[2020-01-25 07:52] LABS: PTT,PARTIAL THROMBOPLSTIN TIME 39.9 SEC (23.2-32.3)
[2020-01-25] MEDS: Sodium Chloride 0.9% 500 ML IV SCH (09:12)
[2020-01-25 10:11] VITALS: PULSE 64
[2020-01-25 11:58] VITALS: BP 113/45
== END 2020-01-25 12:25 | disposition home or self-care (01) ==
LOC: CC.ED 06:56
DX: S30.0XXA Contusion of lower back and pelvis, initial encounter (principal); S40.022A Contusion of left upper arm, initial encounter; S05.12XA Contusion of eyeball and orbital tissues, left eye, initial encounter; H11.32 Conjunctival hemorrhage, left eye; D50.9 Iron deficiency anemia, unspecified; K21.9 Gastro-esophageal reflux disease without esophagitis; I10 Essential (primary) hypertension; F32.9 Major depressive disorder, single episode, unspecified; Z88.1 Allergy status to other antibiotic agents; Z88.5 Allergy status to narcotic agent; Z88.8 Allergy status to other drugs, medicaments and biological substances; Z79.02 Long term (current) use of antithrombotics/antiplatelets; Z79.899 Other long term (current) drug therapy; Z79.01 Long term (current) use of anticoagulants; W19.XXXA Unspecified fall, initial encounter; Y92.129 Unspecified place in nursing home as the place of occurrence of the external cause
CPT/HCPCS: 36415; 36430; 70450; 80053; 82607; 82746; 83540; 83550; 84443; 85025; 85610; 85730; 86850; 86900; 86901; 86920; 86922; 99284-25; J7040; P9016